=== PATIENT | male | born 1955 | race Hispanic/Latino ===

== ENCOUNTER 2016-09-02 00:32 | Inpatient (IN) | payer MEDICARE, OTHER ==
[2016-09-02] MEDS ORDERED: Sodium Chloride 0.9% 1,000 ML IV ONE (04:08)
--- NOTE | 2016-09-02 04:20 | C.PDOC ---
History Of Present Illness <Kassy Quiroz - Last Filed: 09/05/16 10:23> <Abdirizak Jimenez - Last Filed: 10/14/16 06:43> 61 y/o male presents to the ED with complains of syncopal episode. Pt states prior to episode he felt light headed and dizzy. Pt denies any injury. Pt also reports difficulty urinating due to prostate issue. PMHx diabetes, not on medication. Pt drank alcohol today. (Abdirizak Jimenez) <Kassy Quiroz - Last Filed: 09/05/16 10:23> History Per: Patient History/Exam Limitations: no limitations Onset/Duration Of Symptoms: Mins Current Symptoms Are (Timing): Gone Severity: Mild Pain Scale Rating Of: 1 Associated Symptoms: denies: Fever, Chills, Nausea, Vomiting Alleviating Factors: None Recent travel outside of the [place]: No Additional History Per: Patient <Abdirizak Jimenez - Last Filed: 10/14/16 06:43> Time Seen by Provider: 09/02/16 04:00 Chief Complaint (Nursing): Male Genitourinary Past Medical History Reviewed: Historical Data, Nursing Documentation, Vital Signs - Medical History PMH: HTN Surgical History: No Surg Hx Family History: States: Unknown Family Hx - Social History Hx Alcohol Use: Yes Hx Substance Use: No - Immunization History Hx Tetanus Toxoid Vaccination: No Hx Influenza Vaccination: No Hx Pneumococcal Vaccination: No <Abdirizak Jimenez - Last Filed: 10/14/16 06:43> Vital Signs: Last Vital Signs Temp 97.8 F 09/10/16 07:00 Pulse 74 09/10/16 08:00 Resp 20 09/10/16 07:00 BP 127/75 09/10/16 07:00 Pulse Ox 100 10/11/16 14:32 - [facility] Procedures PACKING OF NASAL REGION USING PACKING MATERIAL (11/03/15) Review Of Systems Except As Marked, All Systems Reviewed And Found Negative. Constitutional: Negative for: Fever, Chills, Sweats Cardiovascular: Negative for: Chest Pain, Palpitations, Orthopnea, Paroxysmal Noc. Dyspnea Respiratory: Negative for: Cough, Shortness of Breath, Hemoptysis Gastrointestinal: Negative for: Nausea, Vomiting, Abdominal Pain, Diarrhea Genitourinary: Positive for: Other (difficulty urinating) Musculoskeletal: Negative for: Neck Pain, Shoulder Pain, Arm Pain Neurological: Positive for: Other (syncopal episode). Negative for: Weakness, Numbness, Incoordination, Change in Speech <Abdirizak Jimenez - Last Filed: 10/14/16 06:43> Physical Exam - Physical Exam Appears: Non-toxic, No Acute Distress, Other (alcohol on breath) Skin: Warm, Dry, No Rash Head: Atraumatic, Normacephalic Eye(s): bilateral: PERRL, EOMI Nose: Normal Neck: Normal ROM, Supple Chest: Symmetrical Cardiovascular: Rhythm Regular, No Murmur Respiratory: Normal Breath Sounds, No Rales, No Rhonchi, No Wheezing Gastrointestinal/Abdominal: Soft Extremity: Normal ROM Extremity: Bilateral: Atraumatic Neurological/Psych: Oriented x3, Normal Speech, Normal Cognition, Normal Motor, Normal Sensation <Abdirizak Jimenez - Last Filed: 10/14/16 06:43> ED Course And Treatment - Laboratory Results Result Diagrams: 09/02/16 04:30 09/02/16 04:30 <Kassy Quiroz - Last Filed: 09/05/16 10:23> - Laboratory Results Result Diagrams: 09/08/16 07:26 09/10/16 07:37 ECG: Interpreted By Me, Viewed By Ma ECG Rhythm: Sinus Rhythm ECG Interpretation: No Acute Changes Interpretation Of ECG: j pt. elevation-early repolarization, Rate From EC O2 Sat by Pulse Oximetry: 100 (on room air) Pulse Ox Interpretation: Normal - CT Scan/US CT head Other Rad Studies (CT/US): Read By Radiologist, Radiology Report Reviewed CT/US Interpretation: EXAM: CT Head Without Intravenous Contrast. CLINICAL HISTORY: 61 years old, male; Pain; Headache; Patient HX: 12-28-15. TECHNIQUE: Axial computed tomography images of the head/brain without intravenous contrast. This CT exam. was performed using one or more of the following dose reduction techniques: automated exposure. control, adjustment of the mA and/or kV according to patient size, and/or use of iterative. reconstruction technique. COMPARISON: CT - HEAD W/O CONTRAST 12/28/2015 11:52:43 AM. FINDINGS : Brain: Moderate atrophy. No intracranial hemorrhage. No mass. No definite edema. Ventricles: No hydrocephalus. Bones/joints: No acute fracture. Soft tissues: Probable sebaceous cysts within scalp. Vasculature: Atherosclerotic disease of intracranial arteries. Sinuses: No acute sinusitis. Mastoid air cells: No mastoid effusion. Orbits: Unremarkable as visualized. IMPRESSION: 1. No acute intracranial abnormality. 2. Non-acute findings are described above. Thank you for allowing us to participate in the care of your patient. Dictated and Authenticated by: Patrick Guzman MD. 09/02/2016 5:58 AM Eastern Time ([place] & [place]) <Abdirizak Jimenez - Last Filed: 10/14/16 06:43> NIHSS Stroke Scale - Date/Time Evaluation Performed Date Performed: 09/02/16 Time Performed: 04:00 When Was NIHSS Performed: Baseline - How Severe is the Stoke Level of Consciousness: 0=Alert LOC to Questions: 0=Both comments correct LOC to commands: 0=Obeys both correctly Best Gaze: 0=Normal Visual: 0=No visual loss Facial: 0=Normal Motor Arm - Left: 0=No drift Motor Arm - Right: 0=No drift Motor Leg - Left: 0=No drift Motor Leg - Right: 0=No drift Limb Ataxia: 0=Absent Sensory: 0=Normal Best Language: 0=No aphasia Dysarthia: 0=Normal articulation Extinction & Inattention (Neglect): 0=Normal, no object Score: 0 Severity Of Stroke: 0= No Stroke <Abdirizak Jimenez - Last Filed: 10/14/16 06:43> Progress - Data Reviewed Data Reviewed: Lab, Diagnostic imaging, EKG, Old records - Continuity of Care Discussed patient case with:: Patient, Covering for PMD <Kassy Quiroz - Last Filed: 09/05/16 10:23> - Time Time: 06:00 - Interventions Interventions:: Observation - Data Reviewed Data Reviewed: Lab, Diagnostic imaging, EKG - Patient Status Patient status: Stable - Continuity of Care Discussed patient case with:: Patient - Transfer of Care Patient signed out to Dr:: Dr. Carolina Quiroz <Abdirizak Jimenez - Last Filed: 10/14/16 06:43> - Re-Evaluation Re-evaluation Note: 09/02/16 07:43 AO3 NO ACUTE INTOX, CLEAR SPEECH AND THOUGHT. PS HAD PRIOR SYNCOPAL EPISODES LAST YEAR, WAS TOLD "DUE TO LOW SODIUM". CURRENTLY ASYMPT. PS DOES NOT DRINK DAILY BUT "I KNOW I DIDNT PASS OUT BECAUSE OF THE 4 BEERS". OLD RECS REVIEWED: NO PRIOR CARDIAC STUDIES EXCEPT EKG D/W DR CABALLERO C/F PMD: WILL ADMIT (RichieKassy) Medical Decision Making <Kassy Quiroz - Last Filed: 09/05/16 10:23> <Abdirizak Jimenez - Last Filed: 10/14/16 06:43> Medical Decision Making: Plan: CT head, EKG, labs, UA, IV fluids (Abdirizak Jimenez) Disposition Counseled Patient/Family Regarding: Studies Performed, Diagnosis - Disposition Disposition Time: 07:46 - POA Present On Arrival: None <Kassy Quiroz - Last Filed: 09/05/16 10:23> Discussed With .: Debby Caballero Doctor Will See Patient In The: Hospital Counseled Patient/Family Regarding: Studies Performed, Diagnosis - Disposition Disposition Time: 06:46 - POA Present On Arrival: None <Abdirizak Jimenez - Last Filed: 10/14/16 06:43> - Disposition Disposition: HOSPITALIZED Condition: STABLE - Clinical Impression Clinical Impression: Syncope, Alcohol abuse <Kassy Quiroz - Last Filed: 09/05/16 10:23> - Scribe Statement The provider has reviewed the documentation as recorded by the Scribe <Abdirizak Jimenez - Last Filed: 10/14/16 06:43> - Scribe Statement George Bustamante (Abdirizak Jimenez) Provider Attestation: All medical record entries made by the Scribe were at my direction and personally dictated by me. I have reviewed the chart and agree that the record accurately reflects my personal performance of the history, physical exam, medical decision making, and the department course for this patient. I have also personally directed, reviewed, and agree with the discharge instructions and disposition. (Abdirizak Jimenez) Decision To Admit - Pt Status Changed To: Hospital Disposition Of: Observation - . Bed Request Type: Telemetry Admitting Physician: Debby Caballero <Kassy Quiroz - Last Filed: 09/05/16 10:23> - Pt Status Changed To: Hospital Disposition Of: Observation - InPatient: Physician Admission Certification: I certify that this patient requires 2 or more midnights of care for the following reason:: Patient is to be admitted for obseration for syncopal epsiode - . Bed Request Type: Telemetry <Abdirizak Jimenez - Last Filed: 10/14/16 06:43> - . Patient Diagnosis: Syncope, Alcohol abuse Physician Patient Turnover Patient Signed Over To: Kassy Quiroz Handoff Comments: Hx of syncope, awaiting head CT and disposition. <Abdirizak Jimenez - Last Filed: 10/14/16 06:43>
[2016-09-02 04:38] LABS: BASO # 0.1 K/uL (0.0-0.2); BASO % 2.1 % (0.0-2.0); EOS # 0.2 K/uL (0.0-0.7); HEMATOCRIT 37.8 % (35.0-51.0); LYMPH # 2.4 K/uL (1.0-4.3); MEAN CELL VOLUME 90.4 fL (80.0-94.0); MEAN CORPUSCULAR HEMOGLOBIN 30.7 pg (27.0-31.0); MEAN CORPUSCULAR HGB CONC 33.9 g/dL (33.0-37.0); MEAN PLATELET VOLUME 7.9 fL (7.2-11.7); MONO # 0.6 K/uL (0.0-0.8); MONO % 10.6 % (0.0-10.0); NRBC % 0.1 % (0.0-2.0); RED CELL DISTRIBUTION WIDTH 13.8 % (11.5-14.5); WHITE BLOOD COUNT 5.8 K/uL (4.8-10.8)
[2016-09-02 04:49] LABS: CHLORIDE 98 mmol/L (98-107); SODIUM 132 mmol/L (132-148)
[2016-09-02 04:50] LABS: POTASSIUM 4.8 mmol/L (3.6-5.2)
[2016-09-02 04:52] LABS: ALB/GLOB RATIO 1.1 (1.0-2.1); ALKALINE PHOSPHATASE 57 U/L (38-126); ALT/SGPT 51 U/L (21-72); AST/SGOT 88 U/L (17-59); BILIRUBIN,TOTAL 0.8 mg/dL (0.2-1.3); BLOOD UREA NITROGEN 8 mg/dL (9-20); CALCIUM 8.6 mg/dl (8.6-10.4); CARBON DIOXIDE 21 mmol/L (22-30); GFR AFRICAN-AMERICAN > 60; GLUCOSE,RANDOM 105 mg/dL (75-110); TOTAL PROTEIN 7.7 g/dL (6.3-8.3)
[2016-09-02 04:53] LABS: ALCOHOL SERUM 183 mg/dl (0-10)
--- NOTE | 2016-09-02 05:58 | CT ---
EXAM: CT Head Without Intravenous Contrast. CLINICAL HISTORY: 61 years old, male; Pain; Headache; Patient HX: 7-24-16 TECHNIQUE: Axial computed tomography images of the head/brain without intravenous contrast. This CT exam was performed using one or more of the following dose reduction techniques: automated exposure control, adjustment of the mA and/or kV according to patient size, and/or use of iterative reconstruction technique. COMPARISON: CT - HEAD W/O CONTRAST 12/28/2015 11:52:43 AM FINDINGS: Brain: Moderate atrophy. No intracranial hemorrhage. No mass. No definite edema. Ventricles: No hydrocephalus. Bones/joints: No acute fracture. Soft tissues: Probable sebaceous cysts within scalp. Vasculature: Atherosclerotic disease of intracranial arteries. Sinuses: No acute sinusitis. Mastoid air cells: No mastoid effusion. Orbits: Unremarkable as visualized. IMPRESSION: 1.No acute intracranial abnormality. 2.Non-acute findings are described above.
[2016-09-02] MEDS ORDERED: Sodium Chloride 0.9% 1,000 ML ONE (08:12)
[2016-09-02 09:43] LABS: RBC URINE < 1 /hpf (0-3); URINE BILIRUBIN NEGATIVE (NEGATIVE); URINE BLOOD NEGATIVE (NEGATIVE); URINE COLOR Straw (YELLOW); URINE GLUCOSE (UA) NORMAL (Normal); URINE KETONE NEGATIVE (NEGATIVE); URINE LEUKOCYTE ESTERASE NEG Leu/uL (Negative); URINE PROTEIN NEGATIVE (NEGATIVE); URINE UROBILINOGEN NORMAL mg/dL (0.2-1.0); WBC URINE < 1 /hpf (0-5)
--- NOTE | 2016-09-02 19:37 | CP.PCM.HP ---
History of Present Illness - History of Present Illness History of Present Illness: recurent syncope Present on Admission - Present on Admission Any Indicators Present on Admission: No Review of Systems - Review of Systems Systems not reviewed;Unavailable: Acuity of Condition - Constitutional Constitutional: Frequent Falls - EENT Eyes: As Per HPI Ears: As Per HPI Nose/Mouth/Throat: As Per HPI - Cardiovascular Cardiovascular: Syncope - Respiratory Additional comments: hicup for many years - Gastrointestinal Gastrointestinal: Diarrhea - Genitourinary Genitourinary: Voiding Freq/Small Amts - Reproductive: Male Reproductive:Male: As Per HPI Past Patient History - Tetanus Immunizations Tetanus Immunization: Unknown - Past Medical History & Family History Past Medical History?: Yes - Past Social History Smoking Status: Never Smoked - CARDIAC Hx Hypertension: Yes - PULMONARY Hx Respiratory Disorders: No - NEUROLOGICAL Hx Neurological Disorder: No - HEENT Hx Epistaxis: Yes - RENAL Hx Chronic Kidney Disease: No - ENDOCRINE/METABOLIC Hx Diabetes Mellitus Type 2: No - HEMATOLOGICAL/ONCOLOGICAL Hx Blood Disorders: No - INTEGUMENTARY Hx Dermatological Problems: No - MUSCULOSKELETAL/RHEUMATOLOGICAL Hx Falls: No - GASTROINTESTINAL Hx Gastrointestinal Disorders: Yes - GENITOURINARY/GYNECOLOGICAL Hx Genitourinary Disorders: No Hx Prostate Problems: Yes - PSYCHIATRIC Hx Substance Use: No - SURGICAL HISTORY Hx Surgeries: No - ANESTHESIA Hx Anesthesia: No Meds Allergies/Adverse Reactions: Allergies Allergy/AdvReac Type Severity Reaction Status Date / Time No Known Allergies Allergy Verified 09/02/16 01:33 Physical Exam - Constitutional Appears: Non-toxic - Head Exam Head Exam: NORMAL INSPECTION - Eye Exam Eye Exam: Normal appearance Pupil Exam: NORMAL ACCOMODATION - ENT Exam ENT Exam: Mucous Membranes Moist - Neck Exam Neck exam: Positive for: Full Rom - Respiratory Exam Respiratory Exam: Clear to Auscultation Bilateral - Cardiovascular Exam Cardiovascular Exam: REGULAR RHYTHM - Skin Skin Exam: Normal Color Results - Vital Signs Recent Vital Signs: Last Vital Signs Temp 99.2 F 09/02/16 16:00 Pulse 80 09/02/16 16:00 Resp 20 09/02/16 16:00 BP 130/86 09/02/16 16:00 Pulse Ox 97 09/02/16 16:00 - Labs Result Diagrams: 09/02/16 04:30 09/02/16 04:30 Labs: Laboratory Results - last 24 hr 09/02/16 09:36 Urine Color Straw Urine Clarity Clear Urine pH 5.0 Ur Specific [place] 1.006 Urine Protein Negative Urine Glucose (UA) Normal Urine Ketones Negative Urine Blood Negative Urine Nitrate Negative Urine Bilirubin Negative Urine Urobilinogen Normal Ur Leukocyte Esterase Neg Urine WBC (Auto) < 1 Urine RBC (Auto) < 1 Ur Squamous Epith Cells < 1 Urine Opiates Screen Negative Urine Methadone Screen Negative Ur Barbiturates Screen Negative Ur Phencyclidine Scrn Negative Ur Amphetamines Screen Negative U Benzodiazepines Scrn Negative U Oth Cocaine Metabols Negative U Cannabinoids Screen Negative Assessment & Plan - Assessment and Plan (Free Text) Assessment: recurent syncope jamarigh Plan: as per orders - Date & Time Date: 09/02/16 Time: 19:38
[2016-09-03] MEDS: Folic Acid 1 MG, Thiamine 100 MG, Multivitamin (MVI) 10 ML in Dextrose 5% In Water 1,00... IV SCH (10:10)
--- NOTE | 2016-09-03 10:57 | CP.PCM.PN ---
Subjective - Date & Time of Evaluation Date of Evaluation: 08/27/16 Time of Evaluation: 10:55 - Subjective Subjective: UNSTEADY GAIT Objective - Vital Signs/Intake and Output Vital Signs (last 24 hours): Temp Pulse Resp BP Pulse Ox 98.3 F 74 18 156/78 H 100 09/03/16 08:00 09/03/16 08:00 09/03/16 08:00 09/03/16 08:00 09/03/16 08:00 Intake and Output: 09/03/16 09/03/16 06:59 18:59 Intake Total 240 Balance 240 - Medications Medications: Current Medications Chlordiazepoxide (Librium) 25 mg PO Q8 PRN PRN Reason: Anxiety Heparin Sodium (Porcine) (Heparin) 5,000 units SC Q12 [facility] Last Admin: 09/03/16 10:10 Dose: 5,000 units Folic Acid 1 mg/ Thiamine HCl 100 mg/ Multivitamins/Vitamin C 10 ml/ Dextrose 1 ,011.2 mls @ 100 mls/hr IV DAILY [facility] Last Admin: 09/03/16 10:10 Dose: 100 mls/hr - Constitutional Appears: Non-toxic - Head Exam Head Exam: NORMAL INSPECTION - Eye Exam Eye Exam: Normal appearance Pupil Exam: NORMAL ACCOMODATION - ENT Exam ENT Exam: Mucous Membranes Moist - Neck Exam Neck Exam: Normal Inspection - Cardiovascular Exam Cardiovascular Exam: REGULAR RHYTHM - GI/Abdominal Exam GI & Abdominal Exam: Normal Bowel Sounds - Rectal Exam Rectal Exam: NORMAL INSPECTION - Extremities Exam Extremities Exam: Normal Inspection - Back Exam Back Exam: NORMAL INSPECTION - Neurological Exam Neurological Exam: Abnormal Gait, Oriented x3 - Psychiatric Exam Psychiatric exam: Normal Affect - Skin Skin Exam: Normal Color Assessment and Plan - Assessment and Plan (Free Text) Assessment: RECURENT SYNCOPE UNSTEADY GAITE Plan: PER ORDERS
--- NOTE | 2016-09-03 14:24 | MRI ---
PROCEDURE: MRI BRAIN WITHOUT CONTRAST HISTORY: Recurrent syncope COMPARISON: Noncontrast head CT from 09/02/2016 TECHNIQUE: Multiplanar, multisequence MR images of the brain were obtained without intravenous contrast enhancement. FINDINGS: HEMORRHAGE: None DWI: No evidence of an acute or early subacute infarction. BRAIN PARENCHYMA: There is focal T2/FLAIR hyperintense signal in the right paramedian posterior frontal cortex. There is no mass, mass effect or abnormal extra-axial fluid collection. There is a partially empty sella, otherwise the midline sagittal structures are normal. VENTRICLES: There is moderate age-related global parenchymal volume loss and proportionate enlargement of the ventricles and cortical sulci. CRANIUM: There is normal bone marrow signal pattern. ORBITS: Grossly unremarkable. PARANASAL SINUSES/MASTOIDS: Clear VASCULAR SYSTEM: There are normal signal voids in the larger intracranial arteries. OTHER FINDINGS: None. IMPRESSION: 1. Focal signal abnormality in the right paramedian posterior frontal cortex, nonspecific and not completely characterized on this noncontrast examination. The differential considerations include old infarction and gliosis, focal encephalitis and neoplasm or less likely differential considerations. A dedicated MRI of the brain with intravenous contrast would be helpful for further evaluation. 2. Moderate age-related global parenchymal volume loss.
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
--- NOTE | 2016-09-04 06:26 | CARD ---
APPROVED REPORT EKG Measurement Heart [id number] <Conclusion> Normal sinus rhythm Early repolarization Normal ECG
[2016-09-04] MEDS ORDERED: Gadodiamide 287 MG/ML VIAL (15ML) IV ONE (08:59)
[2016-09-04 09:07] LABS: THYROID STIMULATING HORMONE 2.46 mIU/L (0.46-4.68)
[2016-09-04] MEDS: Folic Acid 1 MG, Thiamine 100 MG, Multivitamin (MVI) 10 ML in Dextrose 5% In Water 1,00... IV SCH (10:00)
--- NOTE | 2016-09-04 10:32 | MRI ---
PROCEDURE: MRI BRAIN WITH AND WITHOUT CONTRAST HISTORY: sycope COMPARISON: Comparison is made to the previous noncontrast study dated 09/03/2016 TECHNIQUE: Multiplanar, multisequence MR images of the brain were obtained with and without intravenous contrast enhancement. FINDINGS: HEMORRHAGE: None DWI: No evidence of an acute or early subacute infarction. BRAIN PARENCHYMA: Re- demonstration of small focal hyperintense T2 and FLAIR signal at the right paramedial posterior frontal cortex. Mild atrophy is again noted. ENHANCEMENT: No significant interval change at the focal abnormal signal in the right posterior frontal paramedial region. VENTRICLES: Unremarkable. No hydrocephalus. CRANIUM: Unremarkable. ORBITS: Grossly unremarkable. PARANASAL SINUSES/MASTOIDS: Clear VASCULAR SYSTEM: Skull base flow voids intact. OTHER FINDINGS: Incidentally noted is a empty sella and mildly enlarged sella turcica.. IMPRESSION: No significant interval change. Re- demonstration of focal abnormal hyperintense T2 and FLAIR signal at the right paramedian posterior frontal cortex which demonstrates no significant enhancement in the postcontrast images. The differential diagnosis is again includes but not limited to sequela of prior infection or inflammatory process and low grade neoplasm. No evidence of acute infarct or other acute pathology in the brain otherwise. Mild atrophy. Follow-up reassessment after 3 months is recommended.
--- NOTE | 2016-09-04 14:28 | CARD ---
APPROVED REPORT EXAM: Two-dimensional and M-mode echocardiogram with Doppler and color Doppler. Other Information Quality : GoodRhythm : NSR INDICATION Dizziness and Vertigo Syncope ALCOHOL ABU M-Mode DIMENSIONS RVDd1.58 (2.1-3.2cm)Left Atrium (MM)3.19 (2.5-4.0cm) IVSd0.73 (0.7-1.1cm)Aortic Root3.16 (2.2-3.7cm) LVDd5.01 (4.0-5.6cm)Aortic Cusp Exc.2.13 (1.5-2.0cm) PWd0.91 (0.7-1.1cm)FS (%) 44 % LVDs2.82 (2.0-3.8cm)LVEF (%)75 (>50%) Mitral Valve MV E Ubfpfxlg28.9cm/sMV A Fbkuxhrp76.6cm/sE/A ratio0.9 TDI E/Lateral E'0.0E/Medial E'0.0 LEFT VENTRICLE The left ventricle is normal size. There is normal left ventricular wall thickness. Left ventricle systolic function is normal. The Ejection Fraction is >70%. There is normal LV segmental wall motion. Tissue Doppler imaging reveals abnormal left ventricular diastolic dysfunction. No left ventricle thrombus noted on this study. RIGHT VENTRICLE The right ventricle is normal size. There is normal right ventricular wall thickness. The right ventricular systolic function is normal. ATRIA The left atrium size is normal. The right atrium size is normal. The interatrial septum is intact with no evidence for an atrial septal defect. AORTIC VALVE The aortic valve is normal in structure. No aortic regurgitation is present. There is no aortic valvular stenosis. There is no aortic valvular vegetation. MITRAL VALVE The mitral valve is normal in structure. There is no evidence of mitral valve prolapse. There is no mitral valve stenosis. There is no mitral valve regurgitation noted. TRICUSPID VALVE The tricuspid valve is normal in structure. There is no tricuspid valve regurgitation noted. There is no tricuspid valve prolapse or vegetation. There is no tricuspid valve stenosis. PULMONIC VALVE The pulmonic valve is not well visualized. There is no pulmonic valvular regurgitation. GREAT VESSELS The aortic root is normal in size. PERICARDIAL EFFUSION There is no significant pericardial effusion. <Conclusion> Left ventricle systolic function is normal. The Ejection Fraction is >70%. Diastolic dysfunction. No aortic regurgitation is present. There is no mitral valve regurgitation noted. There is no tricuspid valve regurgitation noted. There is no pulmonic valvular regurgitation.
--- NOTE | 2016-09-04 16:03 | CP.PCM.CON ---
History of Present Illness - History of Present Illness History of Present Illness: CC: Syncope HPI: 61 y/o male presents to the ED with complains of presyncopal episode. As per chart it appears to be in the context of alchohol intoxication. Patient is reporting several months of these symptoms. Worse with change in position. He is denying abuse of alcohol. He is reporting presyncope which appears to be more like vertigo. He is reporing increased fatigue with exertion. improves with rest. Denies chest pain. Review of Systems - Review of Systems All systems: reviewed and no additional remarkable complaints except Past Patient History - Tetanus Immunizations Tetanus Immunization: Unknown - Past Medical History & Family History Past Medical History?: Yes - Past Social History Smoking Status: Never Smoked - CARDIAC Hx Cardiac Disorders: No Hx Hypertension: Yes - PULMONARY Hx Respiratory Disorders: No - NEUROLOGICAL Hx Neurological Disorder: No - HEENT Hx Epistaxis: Yes - RENAL Hx Chronic Kidney Disease: No - ENDOCRINE/METABOLIC Hx Diabetes Mellitus Type 2: No - HEMATOLOGICAL/ONCOLOGICAL Hx Blood Disorders: No - INTEGUMENTARY Hx Dermatological Problems: No - MUSCULOSKELETAL/RHEUMATOLOGICAL Hx Falls: No - GASTROINTESTINAL Hx Gastrointestinal Disorders: Yes - GENITOURINARY/GYNECOLOGICAL Hx Genitourinary Disorders: No Hx Prostate Problems: Yes - PSYCHIATRIC Hx Substance Use: No - SURGICAL HISTORY Hx Surgeries: No - ANESTHESIA Hx Anesthesia: No Meds Allergies/Adverse Reactions: Allergies Allergy/AdvReac Type Severity Reaction Status Date / Time No Known Allergies Allergy Verified 09/02/16 01:33 - Medications Medications: Current Medications Chlordiazepoxide (Librium) 25 mg PO Q8 PRN PRN Reason: Anxiety Heparin Sodium (Porcine) (Heparin) 5,000 units SC Q12 COUNTS INCLUDE 234 BEDS AT THE [facility] Last Admin: 09/04/16 11:00 Dose: 5,000 units Folic Acid 1 mg/ Thiamine HCl 100 mg/ Multivitamins/Vitamin C 10 ml/ Dextrose 1 ,011.2 mls @ 100 mls/hr IV DAILY COUNTS INCLUDE 234 BEDS AT THE [facility] Last Admin: 09/04/16 10:00 Dose: 100 mls/hr Physical Exam - Constitutional Appears: Well, Non-toxic - Head Exam Head Exam: ATRAUMATIC, NORMAL INSPECTION - Eye Exam Eye Exam: PERRL. absent: Scleral icterus - ENT Exam ENT Exam: Mucous Membranes Moist, Normal Exam - Neck Exam Neck exam: Positive for: Full Rom. Negative for: Thyromegaly - Respiratory Exam Respiratory Exam: Clear to Auscultation Bilateral, NORMAL BREATHING PATTERN - Cardiovascular Exam Cardiovascular Exam: REGULAR RHYTHM, RRR, +S1, +S2. absent: JVD - GI/Abdominal Exam GI & Abdominal Exam: Normal Bowel Sounds. absent: Organomegaly - Neurological Exam Neurological exam: CN II-XII Intact, Oriented x3 - Psychiatric Exam Psychiatric exam: Anxious (odd affect) Results - Vital Signs Recent Vital Signs: Last Vital Signs Temp 98.0 F 09/04/16 08:14 Pulse 79 09/04/16 08:14 Resp 20 09/04/16 08:14 BP 140/83 09/04/16 08:14 Pulse Ox 98 09/04/16 08:14 - Labs Result Diagrams: 09/02/16 04:30 09/02/16 04:30 Labs: Laboratory Results - last 24 hr 09/03/16 09/04/16 19:33 08:07 Triglycerides 68 Cholesterol 173 LDL Cholesterol Direct 44 HDL Cholesterol 108 H Prostate Specific Ag 1.77 25-OH Vitamin D Total < 12.8 L TSH 3rd Generation 2.46 Rheum Arthritis Panel Negative HIV 1&2 Antibody Screen Negative Assessment & Plan - Assessment and Plan (Free Text) Assessment: 61 year old man with possible now with presyncope - IVF, TEDS stockings, increase salt in diet Vertigo - likely needs nasal steroids, meclizine and physical therpy ETOH abuse - IVF; monitor for withdrawl; benzo taper 2D echo images were viewed by me - No evidence of cardiomyopathy. He should follow up in my office in 2 weeks for re evaluation and possible CAD work up.
--- NOTE | 2016-09-04 17:20 | CP.PCM.PN ---
Subjective - Date & Time of Evaluation Date of Evaluation: 09/04/16 Time of Evaluation: 17:18 - Subjective Subjective: feels beter Objective - Vital Signs/Intake and Output Vital Signs (last 24 hours): Temp Pulse Resp BP Pulse Ox 97.9 F 84 20 141/80 100 09/04/16 16:27 09/04/16 16:27 09/04/16 16:27 09/04/16 16:27 09/04/16 16:27 Intake and Output: 09/04/16 09/04/16 06:59 18:59 Intake Total 940 Balance 940 - Medications Medications: Current Medications Calcium/Vitamin D (Oscal-D 250 Mg-125 Units Tab) 1 tab PO DAILY [facility] Chlordiazepoxide (Librium) 25 mg PO Q8 PRN PRN Reason: Anxiety Heparin Sodium (Porcine) (Heparin) 5,000 units SC Q12 [facility] Last Admin: 09/04/16 11:00 Dose: 5,000 units Folic Acid 1 mg/ Thiamine HCl 100 mg/ Multivitamins/Vitamin C 10 ml/ Dextrose 1 ,011.2 mls @ 100 mls/hr IV DAILY [facility] Last Admin: 09/04/16 10:00 Dose: 100 mls/hr - Constitutional Appears: Non-toxic - Head Exam Head Exam: NORMAL INSPECTION - Eye Exam Pupil Exam: NORMAL ACCOMODATION - ENT Exam ENT Exam: Mucous Membranes Moist - Neck Exam Neck Exam: Full ROM - Respiratory Exam Respiratory Exam: NORMAL BREATHING PATTERN - Cardiovascular Exam Cardiovascular Exam: REGULAR RHYTHM - GI/Abdominal Exam GI & Abdominal Exam: Hyperactive Bowel Sounds, Normal Bowel Sounds - Rectal Exam Rectal Exam: NORMAL INSPECTION - Extremities Exam Extremities Exam: Full ROM - Back Exam Back Exam: NORMAL INSPECTION - Psychiatric Exam Psychiatric exam: Normal Affect - Skin Skin Exam: Normal Color Assessment and Plan - Assessment and Plan (Free Text) Assessment: recurent syncpe brain atrophy
--- NOTE | 2016-09-04 18:57 | CP.PCM.CON ---
History of Present Illness - History of Present Illness History of Present Illness: No new Syncopal spells, no seizures, Echo is showing normal findings except for a mild diastolic dysfunction. Very low Vitamin D, and Vitamin D replacement with Oscal were started, Normal PSA. Lab work Are seen. Repeat MRI Brain with contrast is performed, MRA Brain is not performed. 1. Focal signal abnormality in the right paramedian posterior frontal cortex, nonspecific and not completely characterized on this noncontrast examination. The differential considerations include old infarction and gliosis, focal encephalitis and neoplasm or less likely differential considerations. A dedicated MRI of the brain with intravenous contrast would be helpful for further evaluation. 2. Moderate age-related global parenchymal volume loss. Negative Urine Toxicology screen. No change in his condition clinically. Past Patient History - Tetanus Immunizations Tetanus Immunization: Unknown - Past Medical History & Family History Past Medical History?: Yes - Past Social History Smoking Status: Never Smoked - CARDIAC Hx Cardiac Disorders: No Hx Hypertension: Yes - PULMONARY Hx Respiratory Disorders: No - NEUROLOGICAL Hx Neurological Disorder: No - HEENT Hx Epistaxis: Yes - RENAL Hx Chronic Kidney Disease: No - ENDOCRINE/METABOLIC Hx Diabetes Mellitus Type 2: No - HEMATOLOGICAL/ONCOLOGICAL Hx Blood Disorders: No - INTEGUMENTARY Hx Dermatological Problems: No - MUSCULOSKELETAL/RHEUMATOLOGICAL Hx Falls: No - GASTROINTESTINAL Hx Gastrointestinal Disorders: Yes - GENITOURINARY/GYNECOLOGICAL Hx Genitourinary Disorders: No Hx Prostate Problems: Yes - PSYCHIATRIC Hx Substance Use: No - SURGICAL HISTORY Hx Surgeries: No - ANESTHESIA Hx Anesthesia: No Meds Allergies/Adverse Reactions: Allergies Allergy/AdvReac Type Severity Reaction Status Date / Time No Known Allergies Allergy Verified 09/02/16 01:33 - Medications Medications: Current Medications Calcium Carbonate (Oscal) 500 mg PO BID [facility] Calcium/Vitamin D (Oscal-D 250 Mg-125 Units Tab) 1 tab PO DAILY [facility] Chlordiazepoxide (Librium) 25 mg PO Q8 PRN PRN Reason: Anxiety Ergocalciferol (Drisdol 50,000 Intl Units Cap) 1 cap PO Q7D [facility] Heparin Sodium (Porcine) (Heparin) 5,000 units SC Q12 [facility] Last Admin: 09/04/16 11:00 Dose: 5,000 units Folic Acid 1 mg/ Thiamine HCl 100 mg/ Multivitamins/Vitamin C 10 ml/ Dextrose 1 ,011.2 mls @ 100 mls/hr IV DAILY [facility] Last Admin: 09/04/16 10:00 Dose: 100 mls/hr Results - Vital Signs Recent Vital Signs: Last Vital Signs Temp 97.9 F 09/04/16 16:27 Pulse 84 09/04/16 16:27 Resp 20 09/04/16 16:27 BP 141/80 09/04/16 16:27 Pulse Ox 100 09/04/16 16:27 - Labs Result Diagrams: 09/02/16 04:30 09/02/16 04:30 Labs: Laboratory Results - last 24 hr 09/03/16 09/04/16 19:33 08:07 Triglycerides 68 Cholesterol 173 LDL Cholesterol Direct 44 HDL Cholesterol 108 H Prostate Specific Ag 1.77 25-OH Vitamin D Total < 12.8 L TSH 3rd Generation 2.46 Rheum Arthritis Panel Negative HIV 1&2 Antibody Screen Negative Assessment & Plan (1) Alcohol abuse Status: Acute (2) Syncope Status: Acute (3) Dizziness Status: Acute (4) Alcohol intoxication Status: Acute (5) Depression Status: Acute (6) History of posttraumatic stress disorder (PTSD) Status: Acute (7) CVA (cerebral vascular accident) Status: Acute (8) Seizures Status: Acute (9) Alcohol related seizure Status: Acute
[2016-09-04] MEDS ORDERED: Ergocalciferol 50,000 Intl Units Cap PO SCH (20:00)
[2016-09-05] MEDS ORDERED: Calcium-Vit D 250 mg-125 Units Tab UD PO SCH (10:00)
[2016-09-05] MEDS: Folic Acid 1 MG, Thiamine 100 MG, Multivitamin (MVI) 10 ML in Dextrose 5% In Water 1,00... IV SCH (10:33)
--- NOTE | 2016-09-05 11:34 | CP.PCM.PN ---
Subjective - Date & Time of Evaluation Date of Evaluation: 09/05/16 Time of Evaluation: 11:32 - Subjective Subjective: c/kris headeack bpup today Objective - Vital Signs/Intake and Output Vital Signs (last 24 hours): Temp Pulse Resp BP Pulse Ox 97.3 F L 70 20 152/76 H 98 09/05/16 08:17 09/05/16 08:17 09/05/16 08:17 09/05/16 08:17 09/05/16 08:17 - Medications Medications: Current Medications Calcium Carbonate (Oscal) 500 mg PO BID [facility] Last Admin: 09/05/16 10:33 Dose: 500 mg Calcium/Vitamin D (Oscal-D 250 Mg-125 Units Tab) 1 tab PO DAILY [facility] Chlordiazepoxide (Librium) 25 mg PO Q8 PRN PRN Reason: Anxiety Ergocalciferol (Drisdol 50,000 Intl Units Cap) 1 cap PO Q7D [facility] Last Admin: 09/04/16 22:13 Dose: 1 cap Heparin Sodium (Porcine) (Heparin) 5,000 units SC Q12 [facility] Last Admin: 09/05/16 10:33 Dose: 5,000 units Folic Acid 1 mg/ Thiamine HCl 100 mg/ Multivitamins/Vitamin C 10 ml/ Dextrose 1 ,011.2 mls @ 100 mls/hr IV DAILY [facility] Last Admin: 09/05/16 10:33 Dose: 100 mls/hr - Constitutional Appears: Non-toxic - Head Exam Head Exam: NORMAL INSPECTION - Eye Exam Eye Exam: Normal appearance Pupil Exam: NORMAL ACCOMODATION - ENT Exam ENT Exam: Mucous Membranes Moist - Neck Exam Neck Exam: Full ROM - Respiratory Exam Respiratory Exam: NORMAL BREATHING PATTERN - Cardiovascular Exam Cardiovascular Exam: REGULAR RHYTHM - GI/Abdominal Exam GI & Abdominal Exam: Normal Bowel Sounds - Rectal Exam Rectal Exam: NORMAL INSPECTION - Exam Exam: NORMAL INSPECTION External exam: NORMAL EXTERNAL EXAM Bimanual exam: NORMAL BIMANUAL EXAM - Extremities Exam Extremities Exam: Normal Inspection - Back Exam Back Exam: NORMAL INSPECTION - Neurological Exam Neurological Exam: Oriented x3 - Skin Skin Exam: Normal Color Assessment and Plan - Assessment and Plan (Free Text) Assessment: recurent syncopepossible tia r/o seiserez htn Plan: as per orders
--- NOTE | 2016-09-05 17:33 | VASCLAB ---
PROCEDURE: HISTORY: R/O CVA COMPARISON: None available. TECHNIQUE: Grayscale and duplex Doppler evaluation of the cervical carotid and vertebral arteries were performed. The common carotid, carotid bifurcations and cervical Internal Carotid Artery (ICA) and proximal External Carotid Artery (ECA) were evaluated. The vertebral arteries were evaluated for gross patency and flow direction. Report prepared by NEREIDA Monk FINDINGS: RIGHT CAROTID ARTERIES: 1. Common Carotid Artery: No significant focal plaque formation of the right common carotid artery. Maximum Peak Systolic velocity: 90 cm/sec: End-diastolic velocity 14 cm/sec. 2. Carotid Bifurcation: Minimal homogeneous plaque formation. Maximum Peak Systolic velocity: 43 cm/sec: End-diastolic velocity 8 cm/sec. 3. Internal Carotid Artery: Mild irregular plaque. Plaque description: Homogeneous 3.1. Proximal Segment: Peak systolic velocity 54 cm/sec: End-diastolic velocity 15 cm/sec - % stenosis 0-15% 3.2. Middle Segment: Peak systolic velocity 47 cm/sec: End-diastolic velocity 16 cm/sec - % stenosis 0-15% 3.3. Distal Segment: Peak systolic velocity 54 cm/sec: End-diastolic velocity 13 cm/sec - % stenosis 0-15% 4. External Carotid Artery: Mild homogeneous plaque formation. Peak systolic velocity 81 cm/sec 5. ICA/CCA Ratio: 0.9 LEFT CAROTID ARTERIES: 1. Common Carotid Artery: No significant focal plaque formation of the left common carotid artery. Maximum Peak Systolic velocity: 81 cm/sec: End-diastolic velocity 13 cm/sec. 2. Carotid Bifurcation: Calcific plaque formation. Maximum Peak Systolic velocity: 32 cm/sec: End-diastolic velocity 0 cm/sec. 3. Internal Carotid Artery: Moderate irregular plaque. Plaque description: Calcific 3.1. Proximal Segment: Peak systolic velocity 57 cm/sec: End-diastolic velocity 14 cm/sec - % stenosis 0-15% 3.2. Middle Segment: Peak systolic velocity 66 cm/sec: End-diastolic velocity 18 cm/sec - % stenosis 0-15% 3.3. Distal Segment: Peak systolic velocity 82 cm/sec: End-diastolic velocity 23 cm/sec - % stenosis 0-15% 4. External Carotid Artery: Calcific plaque formation. Peak systolic velocity 75 cm/sec 5. ICA/CCA Ratio: 1.3 VERTEBRAL ARTERIES: 1. Right Vertebral Artery: The right vertebral artery flow direction is antegrade. 2. Left Vertebral Artery: The left vertebral artery flow direction is antegrade. OTHER FINDINGS: 1. Right Brachial Blood pressure: 125 mmHg. 2. Left Brachial Blood pressure: 122 mmHg. 3. Heterogeneous thyroid gland. IMPRESSION: RIGHT: Duplex scan does not suggest hemodynamically significant stenosis of the right extracranial carotid arteries. LEFT: Duplex scan does not suggest hemodynamically significant stenosis of the left extracranial carotid arteries. Heterogeneous thyroid gland. Dedicated ultrasound recommended.
[2016-09-06] MEDS: Folic Acid 1 MG, Thiamine 100 MG, Multivitamin (MVI) 10 ML in Dextrose 5% In Water 1,00... IV SCH (10:41)
[2016-09-06] MEDS: Calcium-Vit D 250 mg-125 Units Tab UD PO SCH (10:48)
--- NOTE | 2016-09-06 17:25 | CP.PCM.PN ---
Subjective - Date & Time of Evaluation Date of Evaluation: 09/06/16 Time of Evaluation: 17:22 - Subjective Subjective: pt doesot c/o but mri repeate r/o malignancy lab hep c will consult id and oncology Objective - Vital Signs/Intake and Output Vital Signs (last 24 hours): Temp Pulse Resp BP Pulse Ox 97.6 F 84 20 145/84 97 09/06/16 16:12 09/06/16 16:12 09/06/16 16:12 09/06/16 16:12 09/06/16 16:12 - Medications Medications: Current Medications Calcium Carbonate (Oscal) 500 mg PO BID [facility] Last Admin: 09/06/16 10:41 Dose: 500 mg Calcium/Vitamin D (Oscal-D 250 Mg-125 Units Tab) 1 tab PO DAILY [facility] Last Admin: 09/06/16 10:48 Dose: 1 tab Chlordiazepoxide (Librium) 25 mg PO Q8 PRN PRN Reason: Anxiety Ergocalciferol (Drisdol 50,000 Intl Units Cap) 1 cap PO Q7D [facility] Last Admin: 09/04/16 22:13 Dose: 1 cap Heparin Sodium (Porcine) (Heparin) 5,000 units SC Q12 [facility] Lisinopril (Zestril) 10 mg PO DAILY [facility] Last Admin: 09/06/16 10:41 Dose: 10 mg - Constitutional Appears: Non-toxic - Head Exam Head Exam: NORMAL INSPECTION - Eye Exam Eye Exam: PERRL Pupil Exam: NORMAL ACCOMODATION - ENT Exam ENT Exam: Normal Exam - Neck Exam Neck Exam: Full ROM - Respiratory Exam Respiratory Exam: NORMAL BREATHING PATTERN - Cardiovascular Exam Cardiovascular Exam: REGULAR RHYTHM - Rectal Exam Rectal Exam: NORMAL INSPECTION - Back Exam Back Exam: NORMAL INSPECTION - Neurological Exam Neurological Exam: Normal Gait - Psychiatric Exam Psychiatric exam: Normal Affect - Skin Skin Exam: Warm Assessment and Plan - Assessment and Plan (Free Text) Assessment: syncope empty joel melecio leasion r/o malgnancy hep c Plan: as per orders
--- NOTE | 2016-09-06 17:45 | CP.PCM.PN ---
Subjective - Date & Time of Evaluation Date of Evaluation: 09/06/16 Time of Evaluation: 17:42 - Subjective Subjective: MRI Brain with contrast is consistent with a possible small neoplasm. MRA Brain is not performed. Negative Carotid Doppler bilaterally. Oncology consult is ordered. Dr Brenton Haq is on Board. Lab work is showing a positive Hepatitis C Ab Dr Echavarria is on Board. Objective - Vital Signs/Intake and Output Vital Signs (last 24 hours): Temp Pulse Resp BP Pulse Ox 97.6 F 84 20 145/84 100 09/06/16 16:12 09/06/16 16:12 09/06/16 16:12 09/06/16 16:12 09/06/16 17:42 - Medications Medications: Current Medications Calcium Carbonate (Oscal) 500 mg PO BID [facility] Last Admin: 09/06/16 10:41 Dose: 500 mg Calcium/Vitamin D (Oscal-D 250 Mg-125 Units Tab) 1 tab PO DAILY [facility] Last Admin: 09/06/16 10:48 Dose: 1 tab Chlordiazepoxide (Librium) 25 mg PO Q8 PRN PRN Reason: Anxiety Ergocalciferol (Drisdol 50,000 Intl Units Cap) 1 cap PO Q7D [facility] Last Admin: 09/04/16 22:13 Dose: 1 cap Heparin Sodium (Porcine) (Heparin) 5,000 units SC Q12 [facility] Lisinopril (Zestril) 10 mg PO DAILY [facility] Last Admin: 09/06/16 10:41 Dose: 10 mg Assessment and Plan (1) Alcohol abuse Status: Acute (2) Syncope Status: Acute (3) Dizziness Status: Acute (4) Alcohol intoxication Status: Acute (5) Depression Status: Acute (6) History of posttraumatic stress disorder (PTSD) Status: Acute (7) CVA (cerebral vascular accident) Status: Acute (8) Seizures Status: Acute (9) Alcohol related seizure Status: Acute
--- NOTE | 2016-09-06 22:01 | CP.PCM.CON ---
History of Present Illness - History of Present Illness History of Present Illness: 61 year old male with a history of alcohol and tobacco abuse, ?CVA, admitted with presyncope, found to have a right frontal brain lesion. The patient reports to suffering a stroke several years ago. He thinks his brain lesion may be related to this. He denies visual changes or headache. He denies heavy alcohol consumption. He feels his appetite is stable and he denies weightloss. Past medical history: Alcohol and tobacco abuse, ?CVA Past surgical history: None Family history: Denies hematologic and oncologic problems Social history: 15 cigs daily x 25 years, 3 beers daily, denies illicit drug use. Allergies: NKA Review of systems: All remaining review of systems including HEENT, cardiovascular, respiratory, gastrointestinal, genitourinary, musculoskeletal, dermatologic, neurologic, and psychiatric are negative unless mentioned in the HPI. Past Patient History - Tetanus Immunizations Tetanus Immunization: Unknown - Past Medical History & Family History Past Medical History?: Yes - Past Social History Smoking Status: Never Smoked - CARDIAC Hx Hypertension: Yes - PULMONARY Hx Respiratory Disorders: No - NEUROLOGICAL Hx Neurological Disorder: No - HEENT Hx Epistaxis: Yes - RENAL Hx Chronic Kidney Disease: No - ENDOCRINE/METABOLIC Hx Diabetes Mellitus Type 2: No - HEMATOLOGICAL/ONCOLOGICAL Hx Blood Disorders: No - INTEGUMENTARY Hx Dermatological Problems: No - MUSCULOSKELETAL/RHEUMATOLOGICAL Hx Falls: No - GASTROINTESTINAL Hx Gastrointestinal Disorders: Yes - GENITOURINARY/GYNECOLOGICAL Hx Genitourinary Disorders: No Hx Prostate Problems: Yes - PSYCHIATRIC Hx Substance Use: No - SURGICAL HISTORY Hx Surgeries: No - ANESTHESIA Hx Anesthesia: No Meds Allergies/Adverse Reactions: Allergies Allergy/AdvReac Type Severity Reaction Status Date / Time No Known Allergies Allergy Verified 09/02/16 01:33 - Medications Medications: Current Medications Calcium Carbonate (Oscal) 500 mg PO BID [facility] Last Admin: 09/06/16 17:44 Dose: 500 mg Calcium/Vitamin D (Oscal-D 250 Mg-125 Units Tab) 1 tab PO DAILY [facility] Last Admin: 09/06/16 10:48 Dose: 1 tab Chlordiazepoxide (Librium) 25 mg PO Q8 PRN PRN Reason: Anxiety Ergocalciferol (Drisdol 50,000 Intl Units Cap) 1 cap PO Q7D [facility] Last Admin: 09/04/16 22:13 Dose: 1 cap Heparin Sodium (Porcine) (Heparin) 5,000 units SC Q12 [facility] Last Admin: 09/06/16 21:51 Dose: 5,000 units Lisinopril (Zestril) 10 mg PO DAILY [facility] Last Admin: 09/06/16 10:41 Dose: 10 mg Physical Exam - Head Exam Head Exam: ATRAUMATIC - Eye Exam Eye Exam: Normal appearance - ENT Exam ENT Exam: Mucous Membranes Dry - Respiratory Exam Respiratory Exam: NORMAL BREATHING PATTERN - Cardiovascular Exam Cardiovascular Exam: +S1, +S2 - GI/Abdominal Exam GI & Abdominal Exam: Normal Bowel Sounds - Extremities Exam Extremities exam: Positive for: normal inspection - Neurological Exam Neurological exam: Oriented x3 - Psychiatric Exam Psychiatric exam: Normal Affect, Normal Mood - Skin Skin Exam: Warm Results - Vital Signs Recent Vital Signs: Last Vital Signs Temp 97.6 F 09/06/16 16:12 Pulse 76 09/06/16 20:03 Resp 20 09/06/16 16:12 BP 145/84 09/06/16 16:12 Pulse Ox 100 09/06/16 17:45 - Labs Result Diagrams: 09/02/16 04:30 09/02/16 04:30 Labs: Laboratory Results - last 24 hr 09/04/16 09/05/16 08:07 07:15 Hemoglobin A1c 5.7 MODE 6 Profile Negative Hepatitis A IgM Ab Negative Hep Bs Antigen Negative Hep B Core IgM Ab Negative Hepatitis C Antibody Reactive H Assessment & Plan (1) Brain lesion Assessment and Plan: will check CT C/A/P with PO + IV contrast consider neurosurgical evaluation Status: Acute (2) Anemia Assessment and Plan: will check ferritin, retic count, b12, folate, FOBT to further characterize Status: Acute (3) Tobacco abuse Assessment and Plan: smoking cessation discussed at length with the patient. Thank you for this interesting consult. Status: Acute
[2016-09-07] MEDS ORDERED: Iohexol 240 (50 ml) PO ONE (07:45)
--- NOTE | 2016-09-07 08:01 | EEG ---
DATE: 09/04/2016 The record is obtained for history of syncope, alcohol abuse. The record was obtained while the patient was awake and drowsy. The record was symmetrically equal on both sides with a velocity of 8 cycles per second. The waves a re fairly formed, fairly organized with a posterior distribution, moderate in amplitude, reactive to eye opening by attenuation. There are no abnormal discharges. No spike, no polyspike, no sharp wave , no focal slowing or paroxysmal discharge. The record did not show any changes with photic stimulat ion. The hyperventilation was omitted. There were periods of drowsiness during which attenuation an d slowing of the record were seen and theta waves were seen. There were eye movement artifacts, elec trode artifacts, and muscle movement artifacts. IN SUMMARY: This is a normal awake and drowsy electroencephalogram. Clinical correlation is recomme nded. Justine Goyal MD cc: [id number] TT: 09/07/2016 08:00:12 Confirmation # [id number] Dictation # [id number]
--- NOTE | 2016-09-07 09:29 | CP.PCM.PN ---
Subjective - Date & Time of Evaluation Date of Evaluation: 09/07/16 Time of Evaluation: 09:27 - Subjective Subjective: no c/o no new syncope Objective - Vital Signs/Intake and Output Vital Signs (last 24 hours): Temp Pulse Resp BP Pulse Ox 97.8 F 74 20 120/68 100 09/07/16 07:00 09/07/16 07:00 09/07/16 07:00 09/07/16 07:00 09/07/16 07:00 Intake and Output: 09/07/16 09/07/16 06:59 18:59 Intake Total 1440 Balance 1440 - Medications Medications: Current Medications Calcium Carbonate (Oscal) 500 mg PO BID [facility] Last Admin: 09/06/16 17:44 Dose: 500 mg Calcium/Vitamin D (Oscal-D 250 Mg-125 Units Tab) 1 tab PO DAILY [facility] Last Admin: 09/06/16 10:48 Dose: 1 tab Chlordiazepoxide (Librium) 25 mg PO Q8 PRN PRN Reason: Anxiety Ergocalciferol (Drisdol 50,000 Intl Units Cap) 1 cap PO Q7D [facility] Last Admin: 09/04/16 22:13 Dose: 1 cap Heparin Sodium (Porcine) (Heparin) 5,000 units SC Q12 [facility] Last Admin: 09/06/16 21:51 Dose: 5,000 units Lisinopril (Zestril) 10 mg PO DAILY [facility] Last Admin: 09/06/16 10:41 Dose: 10 mg - Constitutional Appears: Non-toxic - Head Exam Head Exam: NORMAL INSPECTION - Eye Exam Eye Exam: Normal appearance Pupil Exam: NORMAL ACCOMODATION - ENT Exam ENT Exam: Mucous Membranes Moist - Neck Exam Neck Exam: Normal Inspection - Respiratory Exam Respiratory Exam: NORMAL BREATHING PATTERN - Cardiovascular Exam Cardiovascular Exam: REGULAR RHYTHM - GI/Abdominal Exam GI & Abdominal Exam: Normal Bowel Sounds - Rectal Exam Rectal Exam: NORMAL INSPECTION - Exam Exam: NORMAL INSPECTION - Extremities Exam Extremities Exam: Full ROM - Back Exam Back Exam: NORMAL INSPECTION - Neurological Exam Neurological Exam: Normal Gait - Psychiatric Exam Psychiatric exam: Normal Affect - Skin Skin Exam: Normal Color Assessment and Plan - Assessment and Plan (Free Text) Assessment: brain lesion r/o malignancy seen by dr jackson for ct angio and need neurosurgery consult Plan: as per orders
[2016-09-07] MEDS: Calcium-Vit D 250 mg-125 Units Tab UD PO SCH (11:46)
--- NOTE | 2016-09-07 11:55 | CP.PCM.CON ---
History of Present Illness - History of Present Illness History of Present Illness: referred for new + serology for hep c denies risk factors 61 y/o male presents to the ED with complains of syncopal episode. Pt states prior to episode he felt light headed and dizzy. Pt denies any injury. Pt also reports difficulty urinating due to prostate issue. PMHx diabetes, not on medication. Pt drank alcohol today. 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 Review of Systems - Constitutional Constitutional: absent: As Per HPI, Anorexia, Chills, Daytime Sleepiness, Excessive Sweating, Fatigue, Fever, Frequent Falls, Headache, Increased Appetite , Lethargy, Malaise, Night Sweats, Snoring, Sleep Apnea, Weight Gain, Weight Loss, Weakness, Other - EENT Eyes: absent: As Per HPI, Blind Spots, Blurred Vision, Change in Vision, Decreased Night Vision, Diplopia, Discharge, Dry Eye, Exophthalmos, Floaters, Irritation, Itchy Eyes, Loss of Peripheral Vision, Pain, Photophobia, Requires Corrective Lenses, Sees Flashes, Spots in Vision, Tunnel Vision, Other Visual Disturbances, Loss of Vision, Other Ears: absent: As Per HPI, Decreased Hearing, Ear Discharge, Ear Pain, Tinnitus, Abnormal Hearing, Disequilibrium, Dizziness, Other Nose/Mouth/Throat: absent: As Per HPI, Epistaxis, Nasal Congestion, Nasal Discharge, Nasal Obstruction, Nasal Trauma, Nose Pain, Post Nasal Drip, Sinus Pain, Sinus Pressure, Bleeding Gums, Change in Voice, Dental Pain, Dry Mouth, Dysphagia, Halitosis, Hoarsness, Lip Swelling, Mouth Lesions, Mouth Pain, Odynophagia, Sore Throat, Throat Swelling, Tongue Swelling, Facial Pain, Neck Pain, Neck Mass, Other - Cardiovascular Cardiovascular: absent: As Per HPI, Acrocyanosis, Chest Pain, Chest Pain at Rest , Chest Pain with Activity, Claudication, Diaphoresis, Dyspnea, Dyspnea on Exertion, Edema, Irregular Heart Rhythm, Pain Radiating to Arm/Neck/Jaw, Leg Edema, Leg Ulcers, Lightheadedness, Orthopnea, Palpitations, Paroxysmal Nocturnal Dyspnea, Pedal Edema, Radiating Pain, Rapid Heart Rate, Slow Heart Rate, Syncope, Other - Respiratory Respiratory: absent: As Per HPI, Cough, Dyspnea, Hemoptysis, Dyspnea on Exertion , Wheezing, Snoring, Stridor, Pain on Inspiration, Chest Congestion, Excessive Mucous Production, Change in Mucous Color, Pain with Coughing, Other - Gastrointestinal Gastrointestinal: As Per HPI - Genitourinary Genitourinary: absent: As Per HPI, Change in Urinary Stream, Difficulty Urinating, Dysuria, Flank Pain, Hematuria, Pyuria, Nocturia, Urinary Incontinence, Urinary Frequency, Urinary Hesitance, Urinary Urgency, Voiding Freq/Small Amts, Freq UTI, Hx Renal/Bladder Calculi, Hx /Renal Surgery, Bladder Distension, Other - Musculoskeletal Musculoskeletal: absent: As Per HPI, Abnormal Gait, Arthralgias, Atrophy, Back Pain, Deformity, Joint Swelling, Limited Range of Motion, Loss of Height, Muscle Cramps, Muscle Weakness, Myalgias, Neck Pain, Numbness, Radiating Pain into Limb, Stiffness, Tingling, Other - Integumentary Integumentary: absent: As Per HPI, Acne, Alopecia, Bleeding Lesions, Change in Hair, Change in Nails, Change in Pigmentation, Changing Lesions, Dry Skin, Erythema, Furuncle, Hirsutism, Lesions, New Lesions, Non-Healing Lesions, Photosensitivity, Pruritus, Rash, Skin Pain, Skin Ulcer, Sores, Striae, Swelling , Unusual Bruising, Wounds, Jaundice, Other - Neurological Neurological: As Per HPI - Psychiatric Psychiatric: absent: As Per HPI, Abnormal Sleep Pattern, Anhedonia, Anxiety, Auditory Hallucinations, Behavioral Changes, Change in Appetite, Change in Libido, Confusion, Depression, Difficulty Concentrating, Hallucinations, Homicidal Ideation, Hopelessness, Irritability, Memory Loss, Mood Swings, Panic Attacks, Paranoia, Suicidal Ideation, Visual Hallucinations, Tactile Hallucinations, Other - Endocrine Endocrine: absent: As Per HPI, Change in Body Appearance, Change in Libido, Cold Intolorance, Deepening of Voice, Excessive Sweating, Fatigue, Flushing, Heat Intolorance, Increase in Ring/Shoe/Hat Size, Palpitations, Polydipsia, Polyphagia, Polyuria, Other Past Patient History - Tetanus Immunizations Tetanus Immunization: Unknown - Past Medical History & Family History Past Medical History?: Yes - Past Social History Smoking Status: Never Smoked - CARDIAC Hx Hypertension: Yes - PULMONARY Hx Respiratory Disorders: No - NEUROLOGICAL Hx Neurological Disorder: No - HEENT Hx Epistaxis: Yes - RENAL Hx Chronic Kidney Disease: No - ENDOCRINE/METABOLIC Hx Diabetes Mellitus Type 2: No - HEMATOLOGICAL/ONCOLOGICAL Hx Blood Disorders: No - INTEGUMENTARY Hx Dermatological Problems: No - MUSCULOSKELETAL/RHEUMATOLOGICAL Hx Falls: No - GASTROINTESTINAL Hx Gastrointestinal Disorders: Yes - GENITOURINARY/GYNECOLOGICAL Hx Genitourinary Disorders: No Hx Prostate Problems: Yes - PSYCHIATRIC Hx Substance Use: No - SURGICAL HISTORY Hx Surgeries: No - ANESTHESIA Hx Anesthesia: No Meds Allergies/Adverse Reactions: Allergies Allergy/AdvReac Type Severity Reaction Status Date / Time No Known Allergies Allergy Verified 09/02/16 01:33 - Medications Medications: Current Medications Al Hydrox/Mg Hydrox/Simethicone (Maalox Plus 30 Ml) 30 ml PO ONCE ONE Stop: 09/07/16 12:01 Calcium Carbonate (Oscal) 500 mg PO BID [facility] Last Admin: 09/07/16 09:50 Dose: 500 mg Chlordiazepoxide (Librium) 25 mg PO Q8 PRN PRN Reason: Anxiety Ergocalciferol (Drisdol 50,000 Intl Units Cap) 1 cap PO Q7D [facility] Last Admin: 09/04/16 22:13 Dose: 1 cap Heparin Sodium (Porcine) (Heparin) 5,000 units SC Q12 [facility] Last Admin: 09/07/16 09:50 Dose: 5,000 units Lisinopril (Zestril) 10 mg PO DAILY [facility] Last Admin: 09/07/16 09:50 Dose: 10 mg Physical Exam - Constitutional Appears: Non-toxic, Chronically Ill - Head Exam Head Exam: NORMOCEPHALIC - Eye Exam Eye Exam: absent: Scleral icterus - ENT Exam ENT Exam: Mucous Membranes Dry, Normal External Ear Exam - Neck Exam Neck exam: Negative for: Lymphadenopathy - Respiratory Exam Respiratory Exam: Decreased Breath Sounds - Cardiovascular Exam Cardiovascular Exam: REGULAR RHYTHM, +S1, +S2 - GI/Abdominal Exam GI & Abdominal Exam: Diminished Bowel Sounds, Soft. absent: Tenderness - Rectal Exam Rectal Exam: Deferred - Exam Exam: NORMAL INSPECTION - Extremities Exam Extremities exam: Negative for: pedal edema, tenderness Results - Vital Signs Recent Vital Signs: Last Vital Signs Temp 97.8 F 09/07/16 07:00 Pulse 74 09/07/16 08:00 Resp 20 09/07/16 07:00 BP 120/68 09/07/16 07:00 Pulse Ox 100 09/07/16 07:00 - Labs Result Diagrams: 09/08/16 07:26 09/08/16 07:26 Labs: Laboratory Results - last 24 hr 09/04/16 08:07 MODE 6 Profile Negative Assessment & Plan (1) Alcohol abuse Status: Acute (2) Alcohol intoxication Status: Acute (3) Alcohol related seizure Status: Acute (4) Anemia Status: Acute (5) Brain lesion Status: Acute (6) CVA (cerebral vascular accident) Status: Acute (7) Depression Status: Acute (8) History of posttraumatic stress disorder (PTSD) Status: Acute (9) Hepatitis C antibody positive in blood Status: Acute - Assessment and Plan (Free Text) Assessment: will obtain viral load test as out pt
[2016-09-07] MEDS ORDERED: Alum-Mag Hydrox-Simethicone Susp (30 mL) PO ONE (12:00)
[2016-09-07] MEDS ORDERED: Iodixanol 320 MG/ML 100 ML BOTTLE IV ONE (12:17)
--- NOTE | 2016-09-07 13:59 | CT ---
PROCEDURE: CT HEAD WITH CONTRAST HISTORY: brain malignancy COMPARISON: Comparison is made to the previous MRI dated 09/03/[address] without contrast dated 09/02/2016 TECHNIQUE: Axial computed tomography images were obtained through the head/brain with intravenous contrast. Contrast dose: 100 mL Visipaque 320. Radiation dose: Total exam DLP = 783.19 mGy-cm. This CT exam was performed using one or more of the following dose reduction techniques: Automated exposure control, adjustment of the mA and/or kV according to patient size, and/or use of iterative reconstruction technique. FINDINGS: HEMORRHAGE: No intracranial hemorrhage. BRAIN: No mass, mass effect or edema. No abnormal intracranial enhancement. No atrophy or chronic microvascular ischemic changes. VENTRICLES: No evidence of enhancing mass lesion in the brain. There is questionable slight increased enhancement seen at the medial aspect of right paramedial posterior frontal cortex at the region of previously seen abnormal signal in the previous MRI image 37 series 3. . CALVARIUM: Unremarkable. PARANASAL SINUSES: Unremarkable as visualized. No significant inflammatory changes. MASTOID AIR CELLS: Unremarkable as visualized. No mastoid effusion. OTHER FINDINGS: None. IMPRESSION: No evidence of acute pathology. A CT evidence of enhancing mass lesion. Questionable slight increased enhancement at the right paramedial posterior frontal cortex best seen on image 37 series 3. Three-month follow-up reassessment by enhance MRI is suggested. Otherwise grossly unremarkable study.
--- NOTE | 2016-09-07 14:33 | CT ---
CT chest, abdomen, and pelvis with IV contrast Indication: Brain lesion, ? metastases Technique: Contiguous axial images of the chest, abdomen, and pelvis. Coronal and Sagittal reformats generated and reviewed. This CT exam was performed using 1 or more of the falling dose reduction techniques: Automated exposure control, adjustment of the MAA and/or kV according to patient size, and/or use of iterative reconstruction technique. Oral contrast was administered. 100 cc Visipaque injected. Radiation dose: Total exam DLP = 403.19 MGy-cm. Comparison: CT chest without contrast performed 12/29/15 Findings: Visualized portions of the inferior thyroid gland appear unremarkable. The mediastinal and hilar vascular structures appear within normal limits. The heart appears within normal limits of size. Mild emphysematous changes. 3 mm nodular density adjacent to the right fissure (series 4, image 67). No focal consolidation. No pleural effusion. No pneumothorax. Small hiatal hernia/distal esophageal wall thickening. Hypoattenuation of the liver compatible with hepatic steatosis. Tiny less than 3 mm hypodensities (at least 6) predominantly within the left hepatic lobe, too small to characterize. The gallbladder is contracted limiting evaluation. The pancreas, spleen, and adrenal glands appear unremarkable. The kidneys enhance symmetrically. No evidence of hydronephrosis or obstructing calculus. The stomach is nondistended. The bowel loops appear within normal limits of caliber without evidence of intestinal obstruction. Extensive diverticulosis predominantly involving the sigmoid colon without CT evidence of acute diverticulitis. The appendix appears within normal limits of caliber. No secondary signs of acute appendicitis. There is no definite free air. The prostate gland measures approximately 3.1 x 4.9 cm. The urinary bladder appears unremarkable. Bilateral L5 spondylolysis. Impression: Mild emphysematous changes. 3 mm nodular density adjacent to the right fissure within the right upper lobe. In the absence of risk factors for lung cancer, no specific imaging follow-up is required. If the patient is a smoker or has other risk factors, follow-up CT at 12 months is recommended to document stability. Small hiatal hernia/distal esophageal wall thickening. Hepatic steatosis. Tiny less than 3 mm hypodensities (at least 6) predominantly within the left hepatic lobe, too small to characterize. Extensive diverticulosis predominantly involving the sigmoid colon without CT evidence of acute diverticulitis. Bilateral L5 spondylolysis.
--- NOTE | 2016-09-07 18:49 | CP.PCM.PN ---
Subjective - Date & Time of Evaluation Date of Evaluation: 09/07/16 Time of Evaluation: 18:44 - Subjective Subjective: IMPRESSION of CT Brain with Contrast: No evidence of acute pathology. A CT evidence of enhancing mass lesion. Questionable slight increased enhancement at the right paramedial posterior frontal cortex best seen on image 37 series 3. Three-month follow-up reassessment by enhance MRI is suggested. Otherwise grossly unremarkable study. CT Abdomen and Pelvis Mild emphysematous changes. 3 mm nodular density adjacent to the right fissure within the right upper lobe. In the absence of risk factors for lung cancer, no specific imaging follow-up is required. If the patient is a smoker or has other risk factors, follow-up CT at 12 months is recommended to document stability. Small hiatal hernia/distal esophageal wall thickening. Hepatic steatosis. Tiny less than 3 mm hypodensities (at least 6) predominantly within the left hepatic lobe, too small to characterize. Extensive diverticulosis predominantly involving the sigmoid colon without CT evidence of acute diverticulitis. Bilateral L5 spondylolysis. He is seen By Dr Hermilo Haq of Oncology and Dr Echavarria for his hepatitis C. He is doing OK. Dr Echavarria will follow his Hepatitis C Virus Load as out patient. Negative EEG. Objective - Vital Signs/Intake and Output Vital Signs (last 24 hours): Temp Pulse Resp BP Pulse Ox 98 F 77 20 158/80 H 100 09/07/16 16:00 09/07/16 17:15 09/07/16 16:00 09/07/16 16:00 09/07/16 16:00 Intake and Output: 09/07/16 09/07/16 06:59 18:59 Intake Total 1440 Balance 1440 - Medications Medications: Current Medications Calcium Carbonate (Oscal) 500 mg PO BID [facility] Last Admin: 09/07/16 17:55 Dose: Not Given Chlordiazepoxide (Librium) 25 mg PO Q8 PRN PRN Reason: Anxiety Ergocalciferol (Drisdol 50,000 Intl Units Cap) 1 cap PO Q7D [facility] Last Admin: 09/04/16 22:13 Dose: 1 cap Heparin Sodium (Porcine) (Heparin) 5,000 units SC Q12 [facility] Last Admin: 09/07/16 09:50 Dose: 5,000 units Lisinopril (Zestril) 10 mg PO DAILY [facility] Last Admin: 09/07/16 09:50 Dose: 10 mg Assessment and Plan (1) Alcohol abuse Status: Acute (2) Syncope Status: Acute (3) Dizziness Status: Acute (4) Alcohol intoxication Status: Acute (5) Depression Status: Acute (6) History of posttraumatic stress disorder (PTSD) Status: Acute (7) CVA (cerebral vascular accident) Status: Acute (8) Seizures Status: Acute (9) Alcohol related seizure Status: Acute
--- NOTE | 2016-09-07 21:59 | CP.PCM.PN ---
Subjective - Date & Time of Evaluation Date of Evaluation: 09/07/16 Time of Evaluation: 13:10 - Subjective Subjective: No complaints. Objective - Vital Signs/Intake and Output Vital Signs (last 24 hours): Temp Pulse Resp BP Pulse Ox 98 F 77 20 158/80 H 100 09/07/16 16:00 09/07/16 17:15 09/07/16 16:00 09/07/16 16:00 09/07/16 16:00 - Medications Medications: Current Medications Calcium Carbonate (Oscal) 500 mg PO BID [facility] Last Admin: 09/07/16 17:55 Dose: Not Given Chlordiazepoxide (Librium) 25 mg PO Q8 PRN PRN Reason: Anxiety Ergocalciferol (Drisdol 50,000 Intl Units Cap) 1 cap PO Q7D [facility] Last Admin: 09/04/16 22:13 Dose: 1 cap Heparin Sodium (Porcine) (Heparin) 5,000 units SC Q12 [facility] Last Admin: 09/07/16 21:41 Dose: 5,000 units Lisinopril (Zestril) 10 mg PO DAILY [facility] Last Admin: 09/07/16 09:50 Dose: 10 mg - Head Exam Head Exam: ATRAUMATIC - Eye Exam Eye Exam: Normal appearance - ENT Exam ENT Exam: Mucous Membranes Dry - Respiratory Exam Respiratory Exam: NORMAL BREATHING PATTERN - Cardiovascular Exam Cardiovascular Exam: +S1, +S2 - GI/Abdominal Exam GI & Abdominal Exam: Normal Bowel Sounds - Extremities Exam Extremities Exam: Normal Inspection Assessment and Plan (1) Brain lesion Assessment & Plan: CT C/A/P not suggestive of malignancy would recommend neurosurgical consult for further evaluation Status: Acute (2) Anemia Assessment & Plan: will check ferritin, retic count, b12 folate, FOBT to further characterize Status: Acute (3) Tobacco abuse Assessment & Plan: discussed smoking cessation at length Status: Acute
[2016-09-08 07:40] LABS: BASO # 0.2 K/uL (0.0-0.2); BASO % 2.5 % (0.0-2.0); EOS # 0.3 K/uL (0.0-0.7); EOS % 4.5 % (0.0-4.0); HEMATOCRIT 38.1 % (35.0-51.0); LYMPH # 1.7 K/uL (1.0-4.3); LYMPH % 24.2 % (20.0-40.0); MEAN CELL VOLUME 91.7 fL (80.0-94.0); MEAN CORPUSCULAR HEMOGLOBIN 29.8 pg (27.0-31.0); MEAN CORPUSCULAR HGB CONC 32.4 g/dL (33.0-37.0); MONO # 1.2 K/uL (0.0-0.8); MONO % 16.3 % (0.0-10.0); NRBC % 0.1 % (0.0-2.0); RED CELL DISTRIBUTION WIDTH 13.8 % (11.5-14.5); WHITE BLOOD COUNT 7.1 K/uL (4.8-10.8)
[2016-09-08 07:52] LABS: CHLORIDE 94 mmol/L (98-107); POTASSIUM 4.1 mmol/L (3.6-5.2); SODIUM 131 mmol/L (132-148)
[2016-09-08 07:55] LABS: BLOOD UREA NITROGEN 14 mg/dL (9-20); CARBON DIOXIDE 25 mmol/L (22-30); GFR AFRICAN-AMERICAN > 60; GLUCOSE,RANDOM 106 mg/dL (75-110)
--- NOTE | 2016-09-08 14:08 | CP.PCM.PN ---
Subjective - Date & Time of Evaluation Date of Evaluation: 09/08/16 Time of Evaluation: 14:06 - Subjective Subjective: feels beter Objective - Vital Signs/Intake and Output Vital Signs (last 24 hours): Temp Pulse Resp BP Pulse Ox 97.7 F 80 18 124/71 97 09/08/16 07:30 09/08/16 08:00 09/08/16 07:30 09/08/16 07:30 09/08/16 07:30 Intake and Output: 09/08/16 09/08/16 06:59 18:59 Intake Total 200 Balance 200 - Medications Medications: Current Medications Calcium Carbonate (Oscal) 500 mg PO BID [facility] Last Admin: 09/08/16 10:43 Dose: Not Given Chlordiazepoxide (Librium) 25 mg PO Q8 PRN PRN Reason: Anxiety Ergocalciferol (Drisdol 50,000 Intl Units Cap) 1 cap PO Q7D [facility] Last Admin: 09/04/16 22:13 Dose: 1 cap Heparin Sodium (Porcine) (Heparin) 5,000 units SC Q12 [facility] Last Admin: 09/08/16 10:43 Dose: 5,000 units Sodium Chloride (Sodium Chloride 0.9%) 1,000 mls @ 60 mls/hr IV .[id number] [facility] Lisinopril (Zestril) 10 mg PO DAILY [facility] Last Admin: 09/08/16 10:43 Dose: 10 mg - Labs Labs: 09/08/16 07:26 09/08/16 07:26 - Constitutional Appears: Non-toxic - Head Exam Head Exam: NORMAL INSPECTION - Eye Exam Eye Exam: Normal appearance Pupil Exam: NORMAL ACCOMODATION - ENT Exam ENT Exam: Normal Exam - Respiratory Exam Respiratory Exam: NORMAL BREATHING PATTERN - Cardiovascular Exam Cardiovascular Exam: REGULAR RHYTHM - GI/Abdominal Exam GI & Abdominal Exam: Soft - Rectal Exam Rectal Exam: NORMAL INSPECTION - Exam Exam: NORMAL INSPECTION - Extremities Exam Extremities Exam: Full ROM - Back Exam Back Exam: NORMAL INSPECTION - Neurological Exam Neurological Exam: Normal Gait - Psychiatric Exam Psychiatric exam: Normal Affect - Skin Skin Exam: Normal Color Assessment and Plan - Assessment and Plan (Free Text) Assessment: mass lesion brain posible malignancy Plan: lina surgery
--- NOTE | 2016-09-08 15:04 | CON ---
DATE: 09/08/2016 This is a 61-year-old white male with history of recurrent syncope, falls, has dizziness, was admitte d for this reason. He had an MRI of the brain showing some right frontal hyperintensity nonenhancing which is not consistent with any identifiable lesion; it may be inflammatory, may be status post sei zure, may be status post infarct, may be low grade tumor. He currently is fully awake, alert, orient ed. He has good strength in all muscle groups. There are no sensory deficits, no reflex changes. H is cranial nerves are intact. At this time, I believe he should probably be placed on anticonvulsant s as he may have had a seizure and that could be monitored as per neurology, and I would repeat the M RI with contrast in 3 months to evaluate any changes. If it worsens, then refer him back to us. Sony Diego MD cc: [id number] TT: 09/08/2016 15:04:31 Confirmation # [id number] Dictation # [id number]
[2016-09-08] MEDS: Sodium Chloride 0.9% 1,000 ML IV SCH (15:55)
[2016-09-08 16:03] VITALS: RESP 20
--- NOTE | 2016-09-08 16:33 | CP.PCM.PN ---
Subjective - Date & Time of Evaluation Date of Evaluation: 09/08/16 Time of Evaluation: 10:00 - Subjective Subjective: mass lesion neurosurg consulted Objective - Vital Signs/Intake and Output Vital Signs (last 24 hours): Temp Pulse Resp BP Pulse Ox 97.6 F 87 20 120/68 99 09/08/16 16:02 09/08/16 16:02 09/08/16 16:02 09/08/16 16:02 09/08/16 16:02 Intake and Output: 09/08/16 09/08/16 06:59 18:59 Intake Total 200 Balance 200 - Medications Medications: Current Medications Calcium Carbonate (Oscal) 500 mg PO BID [facility] Last Admin: 09/08/16 10:43 Dose: Not Given Chlordiazepoxide (Librium) 25 mg PO Q8 PRN PRN Reason: Anxiety Ergocalciferol (Drisdol 50,000 Intl Units Cap) 1 cap PO Q7D [facility] Last Admin: 09/04/16 22:13 Dose: 1 cap Heparin Sodium (Porcine) (Heparin) 5,000 units SC Q12 [facility] Last Admin: 09/08/16 10:43 Dose: 5,000 units Sodium Chloride (Sodium Chloride 0.9%) 1,000 mls @ 60 mls/hr IV .[id number] [facility] Last Admin: 09/08/16 15:55 Dose: 60 mls/hr Lisinopril (Zestril) 10 mg PO DAILY [facility] Last Admin: 09/08/16 10:43 Dose: 10 mg - Labs Labs: 09/08/16 07:26 09/08/16 07:26 - Constitutional Appears: Non-toxic, Chronically Ill - Head Exam Head Exam: NORMOCEPHALIC - Eye Exam Eye Exam: absent: Conjunctival injection, Scleral icterus Pupil Exam: Unequal - ENT Exam ENT Exam: Mucous Membranes Dry - Neck Exam Neck Exam: absent: Thyromegaly - Respiratory Exam Respiratory Exam: Decreased Breath Sounds, Clear to Ausculation Bilateral - Cardiovascular Exam Cardiovascular Exam: REGULAR RHYTHM, +S1, +S2 Assessment and Plan (1) Alcohol abuse Status: Acute (2) Alcohol intoxication Status: Acute (3) Alcohol related seizure Status: Acute (4) Anemia Status: Acute (5) Brain lesion Status: Acute (6) CVA (cerebral vascular accident) Status: Acute (7) Depression Status: Acute (8) History of posttraumatic stress disorder (PTSD) Status: Acute (9) Hepatitis C antibody positive in blood Status: Acute
--- NOTE | 2016-09-09 00:13 | CP.PCM.PN ---
Subjective - Date & Time of Evaluation Date of Evaluation: 09/08/16 Time of Evaluation: 21:30 - Subjective Subjective: Patient is followed by Hematology Oncology, Neurosurgery, ID, Internal Medicine He is feeling better and is more reassured. No change on Exam. Objective - Vital Signs/Intake and Output Vital Signs (last 24 hours): Temp Pulse Resp BP Pulse Ox 97.6 F 87 20 120/68 99 09/08/16 16:02 09/08/16 16:02 09/08/16 16:02 09/08/16 16:02 09/08/16 16:02 Intake and Output: 09/08/16 09/09/16 18:59 06:59 Intake Total 120 Balance 120 - Medications Medications: Current Medications Calcium Carbonate (Oscal) 500 mg PO BID [facility] Last Admin: 09/08/16 17:29 Dose: Not Given Chlordiazepoxide (Librium) 25 mg PO Q8 PRN PRN Reason: Anxiety Ergocalciferol (Drisdol 50,000 Intl Units Cap) 1 cap PO Q7D [facility] Last Admin: 09/04/16 22:13 Dose: 1 cap Heparin Sodium (Porcine) (Heparin) 5,000 units SC Q12 [facility] Last Admin: 09/08/16 10:43 Dose: 5,000 units Sodium Chloride (Sodium Chloride 0.9%) 1,000 mls @ 60 mls/hr IV .[id number] [facility] Last Admin: 09/08/16 15:55 Dose: 60 mls/hr Lisinopril (Zestril) 10 mg PO DAILY [facility] Last Admin: 09/08/16 10:43 Dose: 10 mg - Labs Labs: 09/08/16 07:26 09/08/16 07:26 Assessment and Plan (1) Alcohol abuse Status: Acute (2) Syncope Status: Acute (3) Dizziness Status: Acute (4) Alcohol intoxication Status: Acute (5) Depression Status: Acute (6) History of posttraumatic stress disorder (PTSD) Status: Acute (7) CVA (cerebral vascular accident) Status: Acute (8) Seizures Status: Acute (9) Alcohol related seizure Status: Acute
[2016-09-09] MEDS: Sodium Chloride 0.9% 1,000 ML IV SCH ×2 (09:49→21:22)
--- NOTE | 2016-09-09 18:07 | CP.PCM.PN ---
Subjective - Date & Time of Evaluation Date of Evaluation: 09/09/16 Time of Evaluation: 16:00 - Subjective Subjective: Negative Hepatitis C PCR. He is feeling better. He will repeat his MRI Brain in 3 months and then serially once a year to follow up his potential slow growing mass in the Brain. He will be seen by Neurosurgery and Oncology, I.D., Internal Medicine and Neurology as an outpatient. Objective - Vital Signs/Intake and Output Vital Signs (last 24 hours): Temp Pulse Resp BP Pulse Ox 97.9 F 77 20 126/73 99 09/09/16 16:00 09/09/16 16:00 09/09/16 16:00 09/09/16 16:00 09/09/16 16:00 - Medications Medications: Current Medications Calcium Carbonate (Oscal) 500 mg PO BID [facility] Last Admin: 09/09/16 17:32 Dose: Not Given Chlordiazepoxide (Librium) 25 mg PO Q8 PRN PRN Reason: Anxiety Ergocalciferol (Drisdol 50,000 Intl Units Cap) 1 cap PO Q7D [facility] Last Admin: 09/04/16 22:13 Dose: 1 cap Heparin Sodium (Porcine) (Heparin) 5,000 units SC Q12 [facility] Last Admin: 09/09/16 09:49 Dose: 5,000 units Sodium Chloride (Sodium Chloride 0.9%) 1,000 mls @ 60 mls/hr IV .[id number] [facility] Last Admin: 09/09/16 09:49 Dose: 60 mls/hr Lisinopril (Zestril) 10 mg PO DAILY [facility] Last Admin: 09/09/16 09:49 Dose: 10 mg - Labs Labs: 09/08/16 07:26 09/08/16 07:26 Assessment and Plan (1) Alcohol abuse Status: Acute (2) Syncope Status: Acute (3) Dizziness Status: Acute (4) Alcohol intoxication Status: Acute (5) Depression Status: Acute (6) History of posttraumatic stress disorder (PTSD) Status: Acute (7) CVA (cerebral vascular accident) Status: Acute (8) Seizures Status: Acute (9) Alcohol related seizure Status: Acute
--- NOTE | 2016-09-09 19:19 | CP.PCM.PN ---
Subjective - Date & Time of Evaluation Date of Evaluation: 09/09/16 Time of Evaluation: 19:17 - Subjective Subjective: feels beter na low on iv Objective - Vital Signs/Intake and Output Vital Signs (last 24 hours): Temp Pulse Resp BP Pulse Ox 97.9 F 77 20 126/73 99 09/09/16 16:00 09/09/16 16:00 09/09/16 16:00 09/09/16 16:00 09/09/16 16:00 - Medications Medications: Current Medications Calcium Carbonate (Oscal) 500 mg PO BID [facility] Last Admin: 09/09/16 17:32 Dose: Not Given Chlordiazepoxide (Librium) 25 mg PO Q8 PRN PRN Reason: Anxiety Ergocalciferol (Drisdol 50,000 Intl Units Cap) 1 cap PO Q7D [facility] Last Admin: 09/04/16 22:13 Dose: 1 cap Heparin Sodium (Porcine) (Heparin) 5,000 units SC Q12 [facility] Last Admin: 09/09/16 09:49 Dose: 5,000 units Sodium Chloride (Sodium Chloride 0.9%) 1,000 mls @ 60 mls/hr IV .[id number] [facility] Last Admin: 09/09/16 09:49 Dose: 60 mls/hr Lisinopril (Zestril) 10 mg PO DAILY [facility] Last Admin: 09/09/16 09:49 Dose: 10 mg - Labs Labs: 09/08/16 07:26 09/08/16 07:26 - Constitutional Appears: Non-toxic - Head Exam Head Exam: NORMAL INSPECTION - Eye Exam Eye Exam: Periorbital tenderness Pupil Exam: NORMAL ACCOMODATION - ENT Exam ENT Exam: Normal Exam - Respiratory Exam Respiratory Exam: NORMAL BREATHING PATTERN - Cardiovascular Exam Cardiovascular Exam: REGULAR RHYTHM - GI/Abdominal Exam GI & Abdominal Exam: Normal Bowel Sounds - Rectal Exam Rectal Exam: NORMAL INSPECTION - Exam External exam: NORMAL EXTERNAL EXAM - Extremities Exam Extremities Exam: Normal Inspection - Back Exam Back Exam: NORMAL INSPECTION - Psychiatric Exam Psychiatric exam: Normal Affect - Skin Skin Exam: Normal Color Assessment and Plan - Assessment and Plan (Free Text) Assessment: hyponatreamia s/p syncope Plan: as per orders
--- NOTE | 2016-09-09 19:41 | CP.PCM.PN ---
Subjective - Date & Time of Evaluation Date of Evaluation: 09/09/16 Time of Evaluation: 19:05 - Subjective Subjective: Feeling better Objective - Vital Signs/Intake and Output Vital Signs (last 24 hours): Temp Pulse Resp BP Pulse Ox 97.9 F 77 20 126/73 99 09/09/16 16:00 09/09/16 16:00 09/09/16 16:00 09/09/16 16:00 09/09/16 16:00 - Medications Medications: Current Medications Calcium Carbonate (Oscal) 500 mg PO BID [facility] Last Admin: 09/09/16 17:32 Dose: Not Given Chlordiazepoxide (Librium) 25 mg PO Q8 PRN PRN Reason: Anxiety Ergocalciferol (Drisdol 50,000 Intl Units Cap) 1 cap PO Q7D [facility] Last Admin: 09/04/16 22:13 Dose: 1 cap Heparin Sodium (Porcine) (Heparin) 5,000 units SC Q12 [facility] Last Admin: 09/09/16 09:49 Dose: 5,000 units Sodium Chloride (Sodium Chloride 0.9%) 1,000 mls @ 60 mls/hr IV .[id number] [facility] Last Admin: 09/09/16 09:49 Dose: 60 mls/hr Lisinopril (Zestril) 10 mg PO DAILY [facility] Last Admin: 09/09/16 09:49 Dose: 10 mg - Labs Labs: 09/08/16 07:26 09/08/16 07:26 - Head Exam Head Exam: ATRAUMATIC - Eye Exam Eye Exam: Normal appearance - ENT Exam ENT Exam: Mucous Membranes Dry - Respiratory Exam Respiratory Exam: NORMAL BREATHING PATTERN - Cardiovascular Exam Cardiovascular Exam: +S1, +S2 - GI/Abdominal Exam GI & Abdominal Exam: Normal Bowel Sounds - Extremities Exam Extremities Exam: Normal Inspection Assessment and Plan (1) Brain lesion Assessment & Plan: seen by neurology and neurosurgery for radiographic surveillance, repeat MRI brain in 3 months Status: Acute (2) Anemia Status: Acute (3) Tobacco abuse Status: Acute
[2016-09-09 23:21] VITALS: PULSE 74
[2016-09-10 08:27] LABS: CHLORIDE 98 mmol/L (98-107); POTASSIUM 4.2 mmol/L (3.6-5.2); SODIUM 133 mmol/L (132-148)
[2016-09-10 08:29] LABS: GFR AFRICAN-AMERICAN > 60
[2016-09-10 08:30] LABS: BLOOD UREA NITROGEN 18 mg/dL (9-20); CALCIUM 8.8 mg/dl (8.6-10.4); CARBON DIOXIDE 22 mmol/L (22-30); GLUCOSE,RANDOM 97 mg/dL (75-110)
[2016-09-10] MEDS ORDERED: Pantoprazole 40 mg EC Tab PO SCH (10:30)
--- NOTE | 2016-09-10 10:34 | CP.PCM.DIS ---
Provider - Provider Date of Admission: 09/03/16 12:51 Attending physician: Debby Caballero MD Primary care physician: pt admitted for recurent sycope seen by neurology and was having hyponatreamia treated with n s had MRI brain was aquasion of malignancy seen by oncology dr jaye carbajal ruled out seen by neuro surgery need to repeate mri in 3 month pt has hepatitis c reactive need f/u pt o/e alert oriented no dicomfort ambultory will d/c home f/u by his md dr armenta cont med as per orders ass recurnt syncope hep c hyponatreamia vit d def Time Spent in preparation of Discharge (in minutes): 30 Hospital Course - Lab Results Lab Results: Most Recent Lab Values WBC 7.1 K/uL (4.8-10.8) 09/08/16 07:26 RBC 4.16 Mil/uL (4.40-5.90) L 09/08/16 07:26 Hgb 12.4 g/dL (12.0-18.0) 09/08/16 07:26 Hct 38.1 % (35.0-51.0) 09/08/16 07:26 MCV 91.7 fL (80.0-94.0) 09/08/16 07:26 MCH 29.8 pg (27.0-31.0) 09/08/16 07:26 MCHC 32.4 g/dL (33.0-37.0) L 09/08/16 07:26 RDW 13.8 % (11.5-14.5) 09/08/16 07:26 Plt Count 274 K/uL (130-400) D 09/08/16 07:26 MPV 8.0 fL (7.2-11.7) 09/08/16 07:26 Neut % (Auto) 52.5 % (50.0-75.0) 09/08/16 07:26 Lymph % (Auto) 24.2 % (20.0-40.0) 09/08/16 07:26 Rush % (Auto) 16.3 % (0.0-10.0) H 09/08/16 07:26 Eos % (Auto) 4.5 % (0.0-4.0) H 09/08/16 07:26 Baso % (Auto) 2.5 % (0.0-2.0) H 09/08/16 07:26 Neut # 3.7 K/uL (1.8-7.0) 09/08/16 07:26 Lymph # 1.7 K/uL (1.0-4.3) 09/08/16 07:26 Rush # 1.2 K/uL (0.0-0.8) H 09/08/16 07:26 Eos # 0.3 K/uL (0.0-0.7) 09/08/16 07:26 Baso # 0.2 K/uL (0.0-0.2) 09/08/16 07:26 Sodium 133 mmol/L (132-148) 09/10/16 07:37 Potassium 4.2 mmol/L (3.6-5.2) 09/10/16 07:37 Chloride 98 mmol/L (98-107) 09/10/16 07:37 Carbon Dioxide 22 mmol/L (22-30) 09/10/16 07:37 Anion Gap 17 (10-20) 09/10/16 07:37 BUN 18 mg/dL (9-20) 09/10/16 07:37 Creatinine 1.1 MG/DL (0.8-1.5) 09/10/16 07:37 Est GFR ( Amer) > 60 09/10/16 07:37 Est GFR (Non-Af Amer) > 60 09/10/16 07:37 Random Glucose 97 mg/dL (75-110) 09/10/16 07:37 Hemoglobin A1c 5.7 % (4.2-6.5) 09/04/16 08:07 Uric Acid 3.6 mg/dL (3.5-8.5) 09/05/16 07:15 Calcium 8.8 mg/dl (8.6-10.4) 09/10/16 07:37 Total Bilirubin 0.8 mg/dL (0.2-1.3) 09/02/16 04:30 AST 88 U/L (17-59) H D 09/02/16 04:30 ALT 51 U/L (21-72) 09/02/16 04:30 Alkaline Phosphatase 57 U/L (38-126) 09/02/16 04:30 Total Protein 7.7 g/dL (6.3-8.3) 09/02/16 04:30 Albumin 4.0 g/dL (3.5-5.0) 09/02/16 04:30 Globulin 3.7 gm/dL (2.2-3.9) 09/02/16 04:30 Albumin/Globulin Ratio 1.1 (1.0-2.1) 09/02/16 04:30 Triglycerides 68 mg/dL (0-149) 09/04/16 08:07 Cholesterol 173 mg/dL (0-199) 09/04/16 08:07 LDL Cholesterol Direct 44 mg/dL (0-129) 09/04/16 08:07 HDL Cholesterol 108 mg/dL (30-70) H 09/04/16 08:07 Prostate Specific Ag 1.77 ng/mL (0.00-4.0) 09/03/16 19:33 25-OH Vitamin D Total < 12.8 NG/ML (30.0-100.0) L 09/04/16 08:07 TSH 3rd Generation 2.46 mIU/L (0.46-4.68) 09/04/16 08:07 Urine Color Straw (YELLOW) 09/02/16 09:36 Urine Clarity Clear (Clear) 09/02/16 09:36 Urine pH 5.0 (5.0-8.0) 09/02/16 09:36 Ur Specific [place] 1.006 (1.003-1.030) 09/02/16 09:36 Urine Protein Negative mg/dL (NEGATIVE) 09/02/16 09:36 Urine Glucose (UA) Normal mg/dL (Normal) 09/02/16 09:36 Urine Ketones Negative mg/dL (NEGATIVE) 09/02/16 09:36 Urine Blood Negative (NEGATIVE) 09/02/16 09:36 Urine Nitrate Negative (NEGATIVE) 09/02/16 09:36 Urine Bilirubin Negative (NEGATIVE) 09/02/16 09:36 Urine Urobilinogen Normal mg/dL (0.2-1.0) 09/02/16 09:36 Ur Leukocyte Esterase Neg Walter/uL (Negative) 09/02/16 09:36 Urine WBC (Auto) < 1 /hpf (0-5) 09/02/16 09:36 Urine RBC (Auto) < 1 /hpf (0-3) 09/02/16 09:36 Ur Squamous Epith Cells < 1 /hpf (0-5) 09/02/16 09:36 Urine Opiates Screen Negative (NEGATIVE) 09/02/16 09:36 Urine Methadone Screen Negative (NEGATIVE) 09/02/16 09:36 Ur Barbiturates Screen Negative (NEGATIVE) 09/02/16 09:36 Ur Phencyclidine Scrn Negative (NEGATIVE) 09/02/16 09:36 Ur Amphetamines Screen Negative (NEGATIVE) 09/02/16 09:36 U Benzodiazepines Scrn Negative (NEGATIVE) 09/02/16 09:36 U Oth Cocaine Metabols Negative (NEGATIVE) 09/02/16 09:36 U Cannabinoids Screen Negative (NEGATIVE) 09/02/16 09:36 Alcohol, Quantitative 183 mg/dl (0-10) H 09/02/16 04:30 Rheum Arthritis Panel Negative (NEGATIVE) 09/04/16 08:07 MODE 6 Profile Negative (NEGATIVE) 09/04/16 08:07 Hepatitis A IgM Ab Negative (NEGATIVE) 09/05/16 07:15 Hep Bs Antigen Negative (NEGATIVE) 09/05/16 07:15 Hep B Core IgM Ab Negative (NEGATIVE) 09/05/16 07:15 Hepatitis C Antibody Reactive (NEGATIVE) H 09/05/16 07:15 Hepatitis C RNA <15 not detected IU/mL (<15) 09/07/16 13:58 HCV RNA Quant (PCR) <1.18 not detected log IU/mL (<1.18) 09/07/16 13:58 HIV 1&2 Antibody Screen Negative (NEGATIVE) 09/04/16 08:07 Discharge Exam - Head Exam Head Exam: ATRAUMATIC Discharge Plan - Follow Up Plan Condition: STABLE Disposition: HOME/ ROUTINE
[2016-09-10 11:51] VITALS: BP 127/75; TEMP 97.8
[2016-09-10] MEDS ORDERED: Pneumococcal 23-Valent Vaccine IM ONE (12:28)
--- NOTE | 2016-09-10 19:06 | CP.PCM.PN ---
Subjective - Date & Time of Evaluation Date of Evaluation: 09/10/16 Time of Evaluation: 12:50 - Subjective Subjective: No Seizures, doing well, not in distress. He is discharged to be followed as an out patient as previous notes. Hepatitis C PCR is negative. Objective - Vital Signs/Intake and Output Vital Signs (last 24 hours): Temp Pulse Resp BP Pulse Ox 97.8 F 74 20 127/75 97 09/10/16 07:00 09/10/16 08:00 09/10/16 07:00 09/10/16 07:00 09/10/16 07:00 - Labs Labs: 09/08/16 07:26 09/10/16 07:37 Assessment and Plan (1) Alcohol abuse Status: Acute (2) Syncope Status: Acute (3) Dizziness Status: Acute (4) Alcohol intoxication Status: Acute (5) Depression Status: Acute (6) History of posttraumatic stress disorder (PTSD) Status: Acute (7) CVA (cerebral vascular accident) Status: Acute (8) Seizures Status: Acute (9) Alcohol related seizure Status: Acute
--- NOTE | 2016-09-24 07:03 | PQF GENQUE ---
This form is a permanent part of the medical record To Carolina Caballero MD Patient was admitted with syncope, history of HTN, Hicough, Depression, PTSD, Alcohol abuse with Intoxication Vitamin D deficiency. CT scam test showed lesion in the brain. Please clarify the etiology of patients recurrent SYNCOPE, if possible. Thank you, CAUSE OF SYNCOPE IS SECONDARY TO THE BRAIN LESION. Clarification of your documentation is requested to better reflect the severity of illness and intensity of treatment of your patient. Indicators present [] Specify: [] [] Specify: [] [] Specify: [] [] Specify: [] Location in the medical record that reflects the above clinical findings: [] Treatment Provided: [] PHYSICIAN'S RESPONSE Based on your medical judgment of the clinical indicators outlined above please clarify the following: [] Practitioner response [] If unable to determine, please check the box, sign and date. Present On Admission (POA) Indicator: [] Present at the time of admission [] Not present at the time of admission [] Clinically Undetermined In responding to this query, please exercise your independent professional judgment. The fact that a question is asked does not imply that any particular answer is desired or expected. Thank you for your clarification on this documentation. If you have any questions please call:[ ] * Thank you, [ ]Elena Mcarthur [employer]
[2016-09-30 21:12] VITALS: O2SAT 100
== END 2016-09-10 12:58 | disposition home or self-care (01) | DRG 71 ==
LOC: C.ER 00:32 → C.9E 07:46 → C.5T 11:03 → OBSVTOIN 09-03 12:51 → C.5T 09-10 02:08
PROVIDERS: ADMIT Internal Medicine; ATTEND Internal Medicine
DX: G93.9 Disorder of brain, unspecified (principal); E87.1 Hypo-osmolality and hyponatremia; G31.89 Other specified degenerative diseases of nervous system; K76.0 Fatty (change of) liver, not elsewhere classified; R55 Syncope and collapse; G40.89 Other seizures; I10 Essential (primary) hypertension; R06.6 Hiccough; F32.9 Major depressive disorder, single episode, unspecified; F43.10 Post-traumatic stress disorder, unspecified; F17.210 Nicotine dependence, cigarettes, uncomplicated; F10.120 Alcohol abuse with intoxication, uncomplicated; Y90.6 Blood alcohol level of 120-199 mg/100 ml; E55.9 Vitamin D deficiency, unspecified; F10.129 Alcohol abuse with intoxication, unspecified; D64.9 Anemia, unspecified; R30.0 Dysuria; R26.81 Unsteadiness on feet; K57.30 Diverticulosis of large intestine without perforation or abscess without bleeding; M43.06 Spondylolysis, lumbar region; B19.20 Unspecified viral hepatitis C without hepatic coma

== ENCOUNTER 2016-10-23 17:19 | Inpatient (IN) | payer MEDICARE, OTHER ==
[2016-10-23 17:31] VITALS: BMI 20.7
--- NOTE | 2016-10-23 17:45 | C.PDOC ---
History Of Present Illness 61M c/o "dizziness" for the last 2 weeks. sx are worse with standing. he describes feeling "woozy" but denies any syncope or vertigo. he says he had an MRI 3 weeks ago which shows a "spot on my brain." Time Seen by Provider: 10/23/16 17:28 Chief Complaint (Nursing): Dizziness/Lightheaded Past Medical History Vital Signs: Last Vital Signs Temp 98.2 F 10/23/16 17:31 Pulse 96 H 10/23/16 17:31 Resp 20 10/23/16 17:31 BP 141/76 10/23/16 17:31 Pulse Ox 100 10/23/16 18:30 - Medical History PMH: HTN - [facility] Procedures PACKING OF NASAL REGION USING PACKING MATERIAL (11/03/15) Family History: States: Other Other Family History: nc - Social History Hx Alcohol Use: Yes Hx Substance Use: No - Immunization History Hx Tetanus Toxoid Vaccination: No Hx Influenza Vaccination: No Hx Pneumococcal Vaccination: No Review Of Systems Except As Marked, All Systems Reviewed And Found Negative. Constitutional: Negative for: Fever, Chills Eyes: Negative for: Vision Change Cardiovascular: Negative for: Chest Pain Respiratory: Negative for: Cough, Shortness of Breath Gastrointestinal: Negative for: Nausea, Vomiting, Abdominal Pain Neurological: Positive for: Headache ("pressure" also x 2 weeks), Dizziness. Negative for: Weakness, Numbness Physical Exam - Physical Exam Appears: Well, Non-toxic, No Acute Distress Skin: Warm, Dry Head: Atraumatic Eye(s): bilateral: PERRL, EOMI Oral Mucosa: Moist Tongue: No Swelling Lips: No Swelling Neck: Normal ROM Cardiovascular: Rhythm Regular Respiratory: No Decreased Breath Sounds, No Accessory Muscle Use, No Rales, No Rhonchi, No Wheezing Extremity: No Deformity Neurological/Psych: Oriented x3, Normal Cranial Nerves, No Cerebellar Signs, Normal Motor, Normal Sensation, Other (no focal deficits) Gait: Steady ED Course And Treatment - Laboratory Results Result Diagrams: 10/23/16 17:57 10/23/16 17:57 O2 Sat by Pulse Oximetry: 100 Medical Decision Making Medical Decision Makin Disc w Dr Caballero who will admit for further eval of dizziness, requests neurology consult w Dr Goyal CXR IMPRESSION: Mild venous congestion. Biapical pleural thickening with upper lobe granulomatous changes. Apical pleural thickening appears more prominent on the left. Right hilar prominence. Blunted right costophrenic angle which may represent pleural thickening and or trace effusion. Small rounded nodular densities project over bilateral lung bases ; right greater than left. Correlation with nipple markers may be helpful. Alternatively, correlation with CT scan may be helpful to exclude underlying pulmonary nodule. ecg- nsr 83, nl axis, nl int, LVH, no stemi Disposition - Disposition Disposition: HOSPITALIZED Disposition Time: 17:45 Condition: STABLE - Clinical Impression Clinical Impression: Dizziness, Hyponatremia
[2016-10-23 18:04] LABS: BASO # 0.1 K/uL (0.0-0.2); BASO % 0.8 % (0.0-2.0); EOS # 0.1 K/uL (0.0-0.7); EOS % 0.8 % (0.0-4.0); HEMATOCRIT 34.2 % (35.0-51.0); LYMPH # 1.6 K/uL (1.0-4.3); LYMPH % 19.8 % (20.0-40.0); MEAN CELL VOLUME 88.4 fL (80.0-94.0); MEAN CORPUSCULAR HEMOGLOBIN 30.6 pg (27.0-31.0); MEAN CORPUSCULAR HGB CONC 34.7 g/dL (33.0-37.0); MONO # 1.1 K/uL (0.0-0.8); MONO % 12.7 % (0.0-10.0); RED CELL DISTRIBUTION WIDTH 14.1 % (11.5-14.5); WHITE BLOOD COUNT 8.3 K/uL (4.8-10.8)
[2016-10-23 18:12] LABS: CHLORIDE 79 mmol/L (98-107); POTASSIUM 4.6 mmol/L (3.6-5.2)
[2016-10-23 18:14] LABS: ALB/GLOB RATIO 1.3 (1.0-2.1); AST/SGOT 83 U/L (17-59); BILIRUBIN,TOTAL 1.2 mg/dL (0.2-1.3); CARBON DIOXIDE 24 mmol/L (22-30); GFR AFRICAN-AMERICAN > 60; TOTAL PROTEIN 8.1 g/dL (6.3-8.3)
[2016-10-23 18:15] LABS: ALKALINE PHOSPHATASE 104 U/L (38-126); ALT/SGPT 56 U/L (21-72); BLOOD UREA NITROGEN 11 mg/dL (9-20); CALCIUM 9.2 mg/dl (8.6-10.4); GLUCOSE,RANDOM 95 mg/dL (75-110)
[2016-10-23 18:21] LABS: SODIUM 117 mmol/L (132-148)
[2016-10-23] MEDS ORDERED: Sodium Chloride 0.9% 500 ML IV ONE ×2 (18:22→18:56)
--- NOTE | 2016-10-23 18:32 | RAD ---
HISTORY: dizzy COMPARISON: No prior. TECHNIQUE: Chest PA and lateral FINDINGS: LUNGS: Mild venous congestion. Biapical pleural thickening with upper lobe granulomatous changes. Apical pleural thickening appears more prominent on the left. Right hilar prominence. Blunted right costophrenic angle which may represent pleural thickening and or trace effusion. Small rounded nodular densities project over bilateral lung bases ; right greater than left. Correlation with nipple markers may be helpful. Alternatively, correlation with CT scan may be helpful to exclude underlying pulmonary nodule. PLEURA: As above. CARDIOVASCULAR: Normal. OSSEOUS STRUCTURES: Probable chronic deformities of several left lateral ribs. VISUALIZED UPPER ABDOMEN: Normal. OTHER FINDINGS: None. IMPRESSION: Mild venous congestion. Biapical pleural thickening with upper lobe granulomatous changes. Apical pleural thickening appears more prominent on the left. Right hilar prominence. Blunted right costophrenic angle which may represent pleural thickening and or trace effusion. Small rounded nodular densities project over bilateral lung bases ; right greater than left. Correlation with nipple markers may be helpful. Alternatively, correlation with CT scan may be helpful to exclude underlying pulmonary nodule.
--- NOTE | 2016-10-23 18:50 | CT ---
EXAM: CT Head Without Intravenous Contrast CLINICAL HISTORY: 61 years old, male; Pain; Headache; Additional info: Dizzy headache TECHNIQUE: Axial computed tomography images of the head/brain without intravenous contrast. This CT exam was performed using one or more of the following dose reduction techniques: automated exposure control, adjustment of the mA and/or kV according to patient size, and/or use of iterative reconstruction technique. EXAM DATE/TIME: Exam ordered 10/23/2016 5:41 PM COMPARISON: CT - HEAD W/O CONTRAST 09/02/2016 5:41:39 AM FINDINGS: Brain: Unremarkable. No hemorrhage. No significant white matter disease. No edema. Ventricles: Unremarkable. No ventriculomegaly. Bones/joints: Unremarkable. No acute fracture. Soft tissues: Unremarkable. Sinuses: There is a minimal mucosal thickening is noted within the left maxillary sinus. 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 Mastoid air cells: Unremarkable as visualized. No mastoid effusion. Sella: There is an empty sella. IMPRESSION: 1. Minimal mucosal thickening in the left maxillary sinus. No change.
[2016-10-23 20:17] LABS: RBC URINE < 1 /hpf (0-3); URINE BILIRUBIN NEGATIVE (NEGATIVE); URINE BLOOD NEGATIVE (NEGATIVE); URINE COLOR Yellow (YELLOW); URINE GLUCOSE (UA) NORMAL (Normal); URINE KETONE TRACE mg/dL (NEGATIVE); URINE LEUKOCYTE ESTERASE NEG Leu/uL (Negative); URINE PROTEIN NEGATIVE (NEGATIVE); WBC URINE < 1 /hpf (0-5)
--- NOTE | 2016-10-24 02:15 | CP.PCM.CON ---
History of Present Illness - History of Present Illness History of Present Illness: Dizziness worse on standing since 2 weeks 61M c/o "dizziness" for the last 2 weeks. sx are worse with standing. he describes feeling "woozy" but denies any syncope or vertigo. he says he had an MRI 3 weeks ago which shows a "spot on my brain." Time Seen by Provider: 10/23/16 17:28 Chief Complaint (Nursing): Dizziness/Lightheaded Past Medical History : HTN H/O Alcohol Abuse Vital Signs: Last Vital Signs Temp 98.2 F 10/23/16 17:31 Pulse 96 H 10/23/16 17:31 Resp 20 10/23/16 17:31 BP 141/76 10/23/16 17:31 Pulse Ox 100 10/23/16 18:30 - Medical History PMH: HTN - [facility] Procedures PACKING OF NASAL REGION USING PACKING MATERIAL (11/03/15) Family History: States: Other - Social History Hx Alcohol Use: Yes Hx Substance Use: No - Immunization History Hx Tetanus Toxoid Vaccination: No Hx Influenza Vaccination: No Hx Pneumococcal Vaccination: No Review Of Systems Except As Marked, All Systems Reviewed And Found Negative. Constitutional: Negative for: Fever, Chills Eyes: Negative for: Vision Change Cardiovascular: Negative for: Chest Pain Respiratory: Negative for: Cough, Shortness of Breath Gastrointestinal: Negative for: Nausea, Vomiting, Abdominal Pain Neurological: Positive for: Headache ("pressure" also x 2 weeks), Dizziness. Negative for: Weakness, Numbness O2 Sat by Pulse Oximetry: 100 Medical Decision Making Medical Decision Makin Disc w Dr Caballero who will admit for further eval of dizziness, requests neurology consult w Dr Goyal IMPRESSIONof CT Brain: 1. Minimal mucosal thickening in the left maxillary sinus. No change. No Abnormal findings in the Brain CXR IMPRESSION: Mild venous congestion. Biapical pleural thickening with upper lobe granulomatous changes. Apical pleural thickening appears more prominent on the left. Right hilar prominence. Blunted right costophrenic angle which may represent pleural thickening and or trace effusion. Small rounded nodular densities project over bilateral lung bases ; right greater than left. Correlation with nipple markers may be helpful. Alternatively, correlation with CT scan may be helpful to exclude underlying pulmonary nodule. ecg- nsr 83, nl axis, nl int, LVH, no stemi Disposition - Disposition Disposition: HOSPITALIZED Disposition Time: 17:45 Condition: STABLE - Clinical Impression Clinical Impression: Dizziness, Hyponatremia Past Patient History - Tetanus Immunizations Tetanus Immunization: Unknown - Past Medical History & Family History Past Medical History?: Yes - Past Social History Smoking Status: Heavy Smoker > 10 Cigarettes Daily - CARDIAC Hx Hypertension: Yes - PULMONARY Hx Respiratory Disorders: No - NEUROLOGICAL Hx Neurological Disorder: No - HEENT Hx Epistaxis: Yes - RENAL Hx Chronic Kidney Disease: No - ENDOCRINE/METABOLIC Hx Diabetes Mellitus Type 2: No - HEMATOLOGICAL/ONCOLOGICAL Hx Blood Disorders: No - INTEGUMENTARY Hx Dermatological Problems: No - MUSCULOSKELETAL/RHEUMATOLOGICAL Hx Falls: No - GASTROINTESTINAL Hx Gastrointestinal Disorders: Yes - GENITOURINARY/GYNECOLOGICAL Hx Genitourinary Disorders: No Hx Prostate Problems: Yes - PSYCHIATRIC Hx Substance Use: No - SURGICAL HISTORY Hx Surgeries: No - ANESTHESIA Hx Anesthesia: No Meds Allergies/Adverse Reactions: Allergies Allergy/AdvReac Type Severity Reaction Status Date / Time No Known Allergies Allergy Verified 10/23/16 17:30 Physical Exam - Neurological Exam Additional comments: Mental Status: Awake, alert, Oriented X 3 Normal Memory X3 Normal Cognition Speech is fluent coherent Cranial Nerves II to XII: No Nystagmus, no deficits Motor: Normal Tone, Peripheral Weakness due to alcoholic Motor Peripheral Neuropathy DTR 0 to 1/4 Toes are down going by plantar stimulation. Sensory: No Deficits Cerebellar: Normal FNT Stature and Gait: He is tired. Results - Vital Signs Recent Vital Signs: Last Vital Signs Temp 98.3 F 10/23/16 23:55 Pulse 79 10/23/16 23:55 Resp 20 10/23/16 23:55 BP 106/64 10/23/16 23:55 Pulse Ox 98 10/23/16 23:55 - Labs Result Diagrams: 10/23/16 17:57 10/24/16 19:37 Labs: Laboratory Results - last 24 hr 10/23/16 10/23/16 10/23/16 17:57 17:57 17:57 WBC 8.3 RBC 3.87 L Hgb 11.9 L Hct 34.2 L MCV 88.4 D MCH 30.6 MCHC 34.7 RDW 14.1 Plt Count 441 H D MPV 7.0 L Neut % (Auto) 65.9 Lymph % (Auto) 19.8 L [place] % (Auto) 12.7 H Eos % (Auto) 0.8 Baso % (Auto) 0.8 Neut # 5.5 Lymph # 1.6 Conway # 1.1 H Eos # 0.1 Baso # 0.1 PT 11.3 INR 1.0 APTT 31 Sodium 117 L* Potassium 4.6 Chloride 79 L Carbon Dioxide 24 Anion Gap 19 BUN 11 Creatinine 1.1 Est GFR ( Amer) > 60 Est GFR (Non-Af Amer) > 60 Random Glucose 95 Serum Osmolality Calcium 9.2 Total Bilirubin 1.2 AST 83 H ALT 56 Alkaline Phosphatase 104 Troponin I < 0.0120 Total Protein 8.1 Albumin 4.6 Globulin 3.6 Albumin/Globulin Ratio 1.3 Urine Color Urine Clarity Urine pH Ur Specific [place] Urine Protein Urine Glucose (UA) Urine Ketones Urine Blood Urine Nitrate Urine Bilirubin Urine Urobilinogen Ur Leukocyte Esterase Urine WBC (Auto) Urine RBC (Auto) Urine Osmolality Ur Random Sodium 10/23/16 10/23/16 10/23/16 19:04 20:04 20:05 WBC RBC Hgb Hct MCV MCH MCHC RDW Plt Count MPV Neut % (Auto) Lymph % (Auto) [place] % (Auto) Eos % (Auto) Baso % (Auto) Neut # Lymph # [place] # Eos # Baso # PT INR APTT Sodium Potassium Chloride Carbon Dioxide Anion Gap BUN Creatinine Est GFR ( Amer) Est GFR (Non-Af Amer) Random Glucose Serum Osmolality 241 L Calcium Total Bilirubin AST ALT Alkaline Phosphatase Troponin I Total Protein Albumin Globulin Albumin/Globulin Ratio Urine Color Yellow Urine Clarity Clear Urine pH 5.0 Ur Specific [place] 1.008 Urine Protein Negative Urine Glucose (UA) Normal Urine Ketones Trace Urine Blood Negative Urine Nitrate Negative Urine Bilirubin Negative Urine Urobilinogen 2.0 Ur Leukocyte Esterase Neg Urine WBC (Auto) < 1 Urine RBC (Auto) < 1 Urine Osmolality 196 L Ur Random Sodium 8 Assessment & Plan (1) Dizziness Status: Acute (2) Hyponatremia Status: Acute (3) Alcohol abuse Status: Acute (4) Alcohol intoxication Status: Acute (5) Alcohol related seizure Status: Acute (6) Anemia Status: Acute (7) CVA (cerebral vascular accident) Assessment and Plan: Negative CT Brain, will get MRI Brain Status: Acute (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
[2016-10-24 07:55] LABS: URIC ACID 3.8 mg/dL (3.5-8.5)
[2016-10-24 08:29] LABS: THYROID STIMULATING HORMONE 2.08 mIU/L (0.46-4.68)
--- NOTE | 2016-10-24 12:08 | CP.PCM.PN ---
Subjective - Date & Time of Evaluation Date of Evaluation: 10/24/16 Time of Evaluation: 12:04 - Subjective Subjective: FEELS BETER TODAY Objective - Vital Signs/Intake and Output Vital Signs (last 24 hours): Temp Pulse Resp BP Pulse Ox 98.0 F 64 20 124/69 97 10/24/16 08:10 10/24/16 08:10 10/24/16 08:10 10/24/16 08:10 10/24/16 08:10 - Medications Medications: Current Medications Folic Acid (Folic Acid) 1 mg PO DAILY [facility] Last Admin: 10/24/16 09:11 Dose: 1 mg Thiamine HCl (Vitamin B1 Tab) 100 mg PO BID [facility] Last Admin: 10/24/16 09:11 Dose: 100 mg - Labs Labs: 10/23/16 17:57 10/23/16 17:57 PT 11.3 SECONDS (9.7-12.2) 10/23/16 17:57 INR 1.0 10/23/16 17:57 APTT 31 SECONDS (21-34) 10/23/16 17:57 - Constitutional Appears: Non-toxic - Head Exam Head Exam: NORMAL INSPECTION - Eye Exam Eye Exam: Normal appearance Pupil Exam: NORMAL ACCOMODATION - ENT Exam ENT Exam: Mucous Membranes Dry - Neck Exam Neck Exam: Full ROM - Respiratory Exam Respiratory Exam: Clear to Ausculation Bilateral - Cardiovascular Exam Cardiovascular Exam: REGULAR RHYTHM - GI/Abdominal Exam GI & Abdominal Exam: Normal Bowel Sounds - Rectal Exam Rectal Exam: NORMAL INSPECTION - Exam Exam: NORMAL INSPECTION External exam: NORMAL EXTERNAL EXAM - Back Exam Back Exam: NORMAL INSPECTION - Neurological Exam Neurological Exam: Oriented x3 - Psychiatric Exam Psychiatric exam: Normal Affect - Skin Skin Exam: Normal Color - Additional Findings Additional findings: NA LOW Assessment and Plan - Assessment and Plan (Free Text) Assessment: S/P AMS AC HYPONATREAMIA Plan: PER ORDERS
--- NOTE | 2016-10-24 17:25 | CP.PCM.CON ---
Past Patient History - Tetanus Immunizations Tetanus Immunization: Unknown - Past Medical History & Family History Past Medical History?: Yes - Past Social History Smoking Status: Heavy Smoker > 10 Cigarettes Daily - CARDIAC Hx Hypertension: Yes - PULMONARY Hx Respiratory Disorders: No - NEUROLOGICAL Hx Neurological Disorder: No - HEENT Hx Epistaxis: Yes - RENAL Hx Chronic Kidney Disease: No - ENDOCRINE/METABOLIC Hx Diabetes Mellitus Type 2: No - HEMATOLOGICAL/ONCOLOGICAL Hx Blood Disorders: No - INTEGUMENTARY Hx Dermatological Problems: No - MUSCULOSKELETAL/RHEUMATOLOGICAL Hx Falls: No - GASTROINTESTINAL Hx Gastrointestinal Disorders: Yes - GENITOURINARY/GYNECOLOGICAL Hx Genitourinary Disorders: No Hx Prostate Problems: Yes - PSYCHIATRIC Hx Substance Use: No - SURGICAL HISTORY Hx Surgeries: No - ANESTHESIA Hx Anesthesia: No Meds Allergies/Adverse Reactions: Allergies Allergy/AdvReac Type Severity Reaction Status Date / Time No Known Allergies Allergy Verified 10/23/16 17:30 - Medications Medications: Current Medications Folic Acid (Folic Acid) 1 mg PO DAILY [facility] Last Admin: 10/24/16 09:11 Dose: 1 mg Thiamine HCl (Vitamin B1 Tab) 100 mg PO BID [facility] Last Admin: 10/24/16 09:11 Dose: 100 mg Results - Vital Signs Recent Vital Signs: Last Vital Signs Temp 98.2 F 10/24/16 16:33 Pulse 64 10/24/16 16:33 Resp 20 10/24/16 16:33 BP 116/67 10/24/16 16:33 Pulse Ox 98 10/24/16 16:33 - Labs Result Diagrams: 10/23/16 17:57 10/23/16 17:57 Labs: Laboratory Results - last 24 hr 10/23/16 10/23/16 10/23/16 17:57 17:57 17:57 WBC 8.3 RBC 3.87 L Hgb 11.9 L Hct 34.2 L MCV 88.4 D MCH 30.6 MCHC 34.7 RDW 14.1 Plt Count 441 H D MPV 7.0 L Neut % (Auto) 65.9 Lymph % (Auto) 19.8 L Mason % (Auto) 12.7 H Eos % (Auto) 0.8 Baso % (Auto) 0.8 Neut # 5.5 Lymph # 1.6 Mason # 1.1 H Eos # 0.1 Baso # 0.1 ESR PT 11.3 INR 1.0 APTT 31 Sodium 117 L* Potassium 4.6 Chloride 79 L Carbon Dioxide 24 Anion Gap 19 BUN 11 Creatinine 1.1 Est GFR ( Amer) > 60 Est GFR (Non-Af Amer) > 60 Random Glucose 95 Serum Osmolality Uric Acid Calcium 9.2 Total Bilirubin 1.2 AST 83 H ALT 56 Alkaline Phosphatase 104 Troponin I < 0.0120 C-React Prot High Sens Total Protein 8.1 Albumin 4.6 Globulin 3.6 Albumin/Globulin Ratio 1.3 25-OH Vitamin D Total TSH 3rd Generation Urine Color Urine Clarity Urine pH Ur Specific [place] Urine Protein Urine Glucose (UA) Urine Ketones Urine Blood Urine Nitrate Urine Bilirubin Urine Urobilinogen Ur Leukocyte Esterase Urine WBC (Auto) Urine RBC (Auto) Urine Osmolality Ur Random Sodium HIV 1&2 Antibody Screen 10/23/16 10/23/16 10/23/16 19:04 20:04 20:05 WBC RBC Hgb Hct MCV MCH MCHC RDW Plt Count MPV Neut % (Auto) Lymph % (Auto) Mason % (Auto) Eos % (Auto) Baso % (Auto) Neut # Lymph # Mason # Eos # Baso # ESR PT INR APTT Sodium Potassium Chloride Carbon Dioxide Anion Gap BUN Creatinine Est GFR ( Amer) Est GFR (Non-Af Amer) Random Glucose Serum Osmolality 241 L Uric Acid Calcium Total Bilirubin AST ALT Alkaline Phosphatase Troponin I C-React Prot High Sens Total Protein Albumin Globulin Albumin/Globulin Ratio 25-OH Vitamin D Total TSH 3rd Generation Urine Color Yellow Urine Clarity Clear Urine pH 5.0 Ur Specific [place] 1.008 Urine Protein Negative Urine Glucose (UA) Normal Urine Ketones Trace Urine Blood Negative Urine Nitrate Negative Urine Bilirubin Negative Urine Urobilinogen 2.0 Ur Leukocyte Esterase Neg Urine WBC (Auto) < 1 Urine RBC (Auto) < 1 Urine Osmolality 196 L Ur Random Sodium 8 HIV 1&2 Antibody Screen 10/24/16 10/24/16 10/24/16 07:17 07:17 07:17 WBC RBC Hgb Hct MCV MCH MCHC RDW Plt Count MPV Neut % (Auto) Lymph % (Auto) Mason % (Auto) Eos % (Auto) Baso % (Auto) Neut # Lymph # Mason # Eos # Baso # ESR 8 PT INR APTT Sodium Potassium Chloride Carbon Dioxide Anion Gap BUN Creatinine Est GFR ( Amer) Est GFR (Non-Af Amer) Random Glucose Serum Osmolality Uric Acid Calcium Total Bilirubin AST ALT Alkaline Phosphatase Troponin I C-React Prot High Sens 5.35 H Total Protein Albumin Globulin Albumin/Globulin Ratio 25-OH Vitamin D Total 19.2 L TSH 3rd Generation Urine Color Urine Clarity Urine pH Ur Specific [place] Urine Protein Urine Glucose (UA) Urine Ketones Urine Blood Urine Nitrate Urine Bilirubin Urine Urobilinogen Ur Leukocyte Esterase Urine WBC (Auto) Urine RBC (Auto) Urine Osmolality Ur Random Sodium HIV 1&2 Antibody Screen 10/24/16 10/24/16 07:17 07:17 WBC RBC Hgb Hct MCV MCH MCHC RDW Plt Count MPV Neut % (Auto) Lymph % (Auto) Mason % (Auto) Eos % (Auto) Baso % (Auto) Neut # Lymph # Mason # Eos # Baso # ESR PT INR APTT Sodium Potassium Chloride Carbon Dioxide Anion Gap BUN Creatinine Est GFR ( Amer) Est GFR (Non-Af Amer) Random Glucose Serum Osmolality Uric Acid 3.8 Calcium Total Bilirubin AST ALT Alkaline Phosphatase Troponin I C-React Prot High Sens Total Protein Albumin Globulin Albumin/Globulin Ratio 25-OH Vitamin D Total TSH 3rd Generation 2.08 Urine Color Urine Clarity Urine pH Ur Specific [place] Urine Protein Urine Glucose (UA) Urine Ketones Urine Blood Urine Nitrate Urine Bilirubin Urine Urobilinogen Ur Leukocyte Esterase Urine WBC (Auto) Urine RBC (Auto) Urine Osmolality Ur Random Sodium HIV 1&2 Antibody Screen Negative
[2016-10-24 19:57] LABS: CHLORIDE 91 mmol/L (98-107); SODIUM 125 mmol/L (132-148)
[2016-10-24 19:59] LABS: GFR AFRICAN-AMERICAN > 60
[2016-10-24 20:00] LABS: ALB/GLOB RATIO 1.2 (1.0-2.1); ALKALINE PHOSPHATASE 72 U/L (38-126); ALT/SGPT 49 U/L (21-72); AST/SGOT 56 U/L (17-59); BILIRUBIN,TOTAL 0.5 mg/dL (0.2-1.3); BLOOD UREA NITROGEN 15 mg/dL (9-20); CARBON DIOXIDE 24 mmol/L (22-30); GLUCOSE,RANDOM 170 mg/dL (75-110); TOTAL PROTEIN 6.4 g/dL (6.3-8.3)
[2016-10-24 20:01] LABS: CALCIUM 8.1 mg/dl (8.6-10.4)
[2016-10-24 20:07] LABS: RAPID PLASMA REAGIN NONREACTIVE (NONREACTIVE)
[2016-10-24] MEDS ORDERED: Ergocalciferol 50,000 Intl Units Cap PO SCH (23:45)
--- NOTE | 2016-10-24 23:52 | CP.PCM.PN ---
Subjective - Date & Time of Evaluation Date of Evaluation: 10/24/16 Time of Evaluation: 21:55 - Subjective Subjective: Doing the same, no changes. Objective - Vital Signs/Intake and Output Vital Signs (last 24 hours): Temp Pulse Resp BP Pulse Ox 98.2 F 64 20 116/67 98 10/24/16 16:33 10/24/16 16:33 10/24/16 16:33 10/24/16 16:33 10/24/16 16:33 Intake and Output: 10/24/16 10/25/16 18:59 06:59 Intake Total 800 Balance 800 - Medications Medications: Current Medications Folic Acid (Folic Acid) 1 mg PO DAILY [facility] Last Admin: 10/24/16 09:11 Dose: 1 mg Thiamine HCl (Vitamin B1 Tab) 100 mg PO BID [facility] Last Admin: 10/24/16 17:58 Dose: 100 mg - Labs Labs: 10/23/16 17:57 10/24/16 19:37 PT 11.3 SECONDS (9.7-12.2) 10/23/16 17:57 INR 1.0 10/23/16 17:57 APTT 31 SECONDS (21-34) 10/23/16 17:57 Assessment and Plan (1) Dizziness Status: Acute (2) Hyponatremia Status: Acute (3) Alcohol abuse Status: Acute (4) Alcohol intoxication Status: Acute (5) Alcohol related seizure Status: Acute (6) Anemia Status: Acute (7) CVA (cerebral vascular accident) Status: Acute
[2016-10-25 08:00] LABS: CHLORIDE 94 mmol/L (98-107); SODIUM 126 mmol/L (132-148)
[2016-10-25 08:03] LABS: BLOOD UREA NITROGEN 14 mg/dL (9-20); CARBON DIOXIDE 24 mmol/L (22-30); GFR AFRICAN-AMERICAN > 60
[2016-10-25 08:04] LABS: CALCIUM 8.4 mg/dl (8.6-10.4); GLUCOSE,RANDOM 101 mg/dL (75-110)
[2016-10-25 08:09] VITALS: O2SAT 99
[2016-10-25] MEDS ORDERED: Ergocalciferol 50,000 Intl Units Cap PO SCH (09:00)
--- NOTE | 2016-10-25 16:26 | MRI ---
PROCEDURE: MRI BRAIN WITHOUT CONTRAST HISTORY: R/O CVA COMPARISON: Comparison is made to the previous MRI dated 09/03/2016 and 09/04/2016. TECHNIQUE: Multiplanar, multisequence MR images of the brain were obtained without intravenous contrast enhancement. FINDINGS: HEMORRHAGE: None DWI: No evidence of an acute or early subacute infarction. BRAIN PARENCHYMA: Again seen is focal hyperintense FLAIR signal at the posterior right frontal cortex adjacent to the midline which has not significantly changed since the previous exam. No evidence of other abnormal signal in the brain. Pzcf-yf-zrizutlz atrophy is noted again. VENTRICLES: Unremarkable. No hydrocephalus. CRANIUM: Unremarkable. ORBITS: Grossly unremarkable. PARANASAL SINUSES/MASTOIDS: Clear VASCULAR SYSTEM: Skull base flow voids intact. OTHER FINDINGS: None. IMPRESSION: No evidence of acute pathology in the brain. No evidence of significant interval change since the previous exam. Re- demonstration of focal hyperintense FLAIR signal at the paramedian posterior right frontal cortex. Fdio-iq-uxormyaw atrophy.
[2016-10-25 16:30] VITALS: BP 136/77; PULSE 63; RESP 20; TEMP 98
--- NOTE | 2016-10-25 16:47 | CP.PCM.PN ---
Subjective - Date & Time of Evaluation Date of Evaluation: 10/25/16 Time of Evaluation: 16:47 - Subjective Subjective: feels good wants to go home Objective - Vital Signs/Intake and Output Vital Signs (last 24 hours): Temp Pulse Resp BP Pulse Ox 98 F 63 20 136/77 99 10/25/16 15:00 10/25/16 15:00 10/25/16 15:00 10/25/16 15:00 10/25/16 15:00 Intake and Output: 10/25/16 10/25/16 06:59 18:59 Intake Total 1040 Balance 1040 - Medications Medications: Current Medications Calcium Carbonate (Oscal) 500 mg PO BID [facility] Last Admin: 10/25/16 10:35 Dose: 500 mg Ergocalciferol (Drisdol 50,000 Intl Units Cap) 1 cap PO Q7D [facility] Last Admin: 10/25/16 10:35 Dose: 1 cap Folic Acid (Folic Acid) 1 mg PO DAILY [facility] Last Admin: 10/25/16 10:35 Dose: 1 mg Heparin Sodium (Porcine) (Heparin) 5,000 units SC Q12 [facility] Last Admin: 10/25/16 10:34 Dose: 5,000 units Thiamine HCl (Vitamin B1 Tab) 100 mg PO BID [facility] Last Admin: 10/25/16 10:38 Dose: 100 mg - Labs Labs: 10/23/16 17:57 10/25/16 07:26 PT 11.3 SECONDS (9.7-12.2) 10/23/16 17:57 INR 1.0 10/23/16 17:57 APTT 31 SECONDS (21-34) 10/23/16 17:57 - Constitutional Appears: No Acute Distress - Head Exam Head Exam: NORMAL INSPECTION - Eye Exam Eye Exam: Normal appearance - ENT Exam ENT Exam: Mucous Membranes Moist - Neck Exam Neck Exam: Full ROM - Respiratory Exam Respiratory Exam: Clear to Ausculation Bilateral - Rectal Exam Rectal Exam: NORMAL INSPECTION - Extremities Exam Extremities Exam: Full ROM - Back Exam Back Exam: NORMAL INSPECTION - Neurological Exam Neurological Exam: Alert, Awake, Normal Gait, Oriented x3 - Psychiatric Exam Psychiatric exam: Normal Affect - Skin Skin Exam: Normal Color Assessment and Plan - Assessment and Plan (Free Text) Assessment: hyponatreamia mild s/p dizziness improved hyperglyceamia reflux Plan: discharge home f/u by
[2016-10-25] MEDS ORDERED: Pantoprazole 40 mg EC Tab PO SCH (17:00)
--- NOTE | 2016-10-25 18:21 | CON ---
DATE: 10/23/2016 REASON FOR CONSULTATION: Dizziness. REQUESTING PHYSICIAN: Dr. Caballero. HISTORY OF PRESENT ILLNESS: This is a 61-year-old male who has had a history of dizziness on and off for many months. He states it only happens when he gets out of bed, lasts for 4-5 seconds and then goes away. There is no tinnitus, no hearing loss, no sensation of vertigo or room spinning. He stat es he is just feeling lightheaded. It is on and off and only happens when he stands up. PAST MEDICAL HISTORY: As noted in the chart by me. MEDICATIONS: As noted on the chart by me. PHYSICAL EXAMINATION: HEAD: Atraumatic, normocephalic. FACE: Good facial movements bilaterally. CONSTITUTIONAL: Well-developed, well-nourished. COMMUNICATION: Communicates very appropriately. EXTERNAL NOSE AND EARS: No masses, no lesions, no erythema, no edema. INTERNAL NOSE: Deviated septum, no masses, no lesions, no erythema, no edema. ORAL CAVITY, OROPHARYNX: No masses, no lesions, no erythema, no edema. LIPS, GUMS: No masses, no lesions, no erythema, no edema. NECK: Supple. THYROID: No thyromegaly, no goiter. LYMPH NODES: No lymphadenopathy of the neck. ASSESSMENT: 1. Dizziness. 2. Deviated septum. PLAN: The patient should have an MRI of the head done, as has not had one done recently. Follow up as an outpatient. Most likely this is due to a systemic problem. It may be blood pressure or any blo od pressure medications he is on. However, the patient stated that he had a Doppler of the carotids and it was normal. He had MRI of the head and that was normal. The patient was told to follow up in my office and bring the results of his imaging studies so I can look at them. Fabio Tellez MD cc: [id number] TT: 10/25/2016 18:21:00 Confirmation # [id number] Dictation # [id number] ln
--- NOTE | 2016-10-26 00:56 | CP.PCM.PN ---
Subjective - Date & Time of Evaluation Date of Evaluation: 10/25/16 Time of Evaluation: 17:00 - Subjective Subjective: Patient felt better and his symptoms resoved. He is discharge home on his same medicine that he had at the hospital. Objective - Vital Signs/Intake and Output Vital Signs (last 24 hours): Temp Pulse Resp BP Pulse Ox 98 F 63 20 136/77 99 10/25/16 15:00 10/25/16 15:00 10/25/16 15:00 10/25/16 15:00 10/25/16 15:00 - Labs Labs: 10/23/16 17:57 10/25/16 07:26 PT 11.3 SECONDS (9.7-12.2) 10/23/16 17:57 INR 1.0 10/23/16 17:57 APTT 31 SECONDS (21-34) 10/23/16 17:57 Assessment and Plan (1) Dizziness Status: Acute (2) Hyponatremia Status: Acute (3) Alcohol abuse Status: Acute (4) Alcohol intoxication Status: Acute (5) Alcohol related seizure Status: Acute (6) Anemia Status: Acute (7) CVA (cerebral vascular accident) Status: Acute (8) Peripheral motor neuropathy Status: Acute
--- NOTE | 2016-10-27 14:33 | HP ---
The patient came into the Emergency Room, brought in by his family. He had altered mental status and feeling dizzy. The dizziness was about 2 weeks on and off, then he got oozy and unable to concentra te or answer, so they brought him to the Emergency Room. VITAL SIGNS: Blood pressure 141/76, , respirations 20, pulse of 96, and temperature was 98.2. He was not in any distress. He was afebrile, as we said. His skin was dry. He has no swelling. Hi s heart was regular rhythm. At the time he came into the Emergency Room, he was oriented and he has no focal deficit. He was josé miguel rt at the time of admission. LABORATORY DATA: His hemoglobin was 11.9, 34.2 hematocrit and his platelet was high 441. His chemis try was fine. His BUN 11, creatinine 1.9. Sugar is fine. DIAGNOSTIC DATA: He had a CAT scan which was negative. He was monitored for neurological status and his vitals and he was seen by Dr. Justine Goyal for consultation. He had also an MRI done which was un remarkable. CAT scan was negative as well. He was alert, oriented and he was seen by physical therapy. He was able to ambulate good and is feel ing a lot better, so he was sent home on 10/25 to continue physical therapy at home and to continue al l his medications. He was able to walk by himself. He is alert and oriented. His vital signs were stable. He was taking calcium carbonate and ergocalciferol. A prescription was given to the patient and he will follow up with his MD. He also has folic acid thiamine, multiple vitamins given t o him as well. FINAL DIAGNOSES: Acute dizziness and borderline anemia. The patient was stable. Debby Caballero MD cc: [phone] TT: 10/27/2016 12:24:51 sally
[2016-10-27 19:49] LABS: LYME IGM NEGATIVE (NEGATIVE)
[2016-10-27 19:53] LABS: LYME IGG NEGATIVE (NEGATIVE)
--- NOTE | 2016-11-02 11:12 | EEG ---
DATE: 10/25/2016 The record is obtained for a history of altered mental status, rule out seizures. The patient has a history of alcohol abuse and history of vertigo. The record was symmetrically equal on both sides wi th velocity of 8 cycles per second. Waves are fairly formed, fairly organized with a posterior distr ibution, average in amplitude, reactive to eye opening by attenuation. There are no abnormal dischar ges. No spike, no polyspike, no sharp wave, no focal slowing or paroxysmal discharge. The record di d not show any changes with photic stimulation. Hyperventilation was omitted. There are periods of drowsiness during which attenuation and slowing of the record were seen and theta waves were seen. T here are no periods of sleep. There are eye movement artifacts that were seen abundantly, muscle mov ement artifact, electrode artifact. In sum, this is a normal awake and drowsy EEG. Clinical correlation is recommended. Justine Goyal MD cc: [phone] TT: 10/30/2016 06:56:43 Confirmation # [id number] Dictation # [id number] tn
--- NOTE | 2016-11-05 11:19 | CARD ---
APPROVED REPORT EKG Measurement Heart [id number] <Conclusion> Normal sinus rhythm Minimal voltage criteria for LVH, may be normal variant Borderline ECG
== END 2016-10-25 18:10 | disposition home or self-care (01) | DRG 812 ==
LOC: C.ER 17:19 → OBSVTOIN 17:41 → C.9E 17:41 → C.6T 20:04
PROVIDERS: ADMIT Internal Medicine; ATTEND Internal Medicine
DX: D64.9 Anemia, unspecified (principal); E87.1 Hypo-osmolality and hyponatremia; R56.9 Unspecified convulsions; F10.129 Alcohol abuse with intoxication, unspecified; G62.9 Polyneuropathy, unspecified; I10 Essential (primary) hypertension; J34.2 Deviated nasal septum; K21.9 Gastro-esophageal reflux disease without esophagitis; F17.200 Nicotine dependence, unspecified, uncomplicated; R42 Dizziness and giddiness

== ENCOUNTER 2018-08-02 15:49 | Inpatient (IN) | payer MEDICARE, OTHER ==
[2018-08-02 16:03] VITALS: BMI 18.6
[2018-08-02 17:26] LABS: BASO % 0.5 % (0.0-2.0); EOS # 0.1 K/uL (0.0-0.7); EOS % 0.9 % (0.0-4.0); HEMOGLOBIN 12.4 g/dL (12.0-18.0); LYMPH # 1.4 K/uL (1.0-4.3); LYMPH % 19.1 % (20.0-40.0); MEAN CELL VOLUME 85.5 fL (80.0-94.0); MEAN CORPUSCULAR HEMOGLOBIN 28.8 pg (27.0-31.0); MEAN CORPUSCULAR HGB CONC 33.7 g/dL (33.0-37.0); MONO # 0.8 K/uL (0.0-0.8); MONO % 10.7 % (0.0-10.0); NEUT # 4.9 K/uL (1.8-7.0); NEUT % 68.8 % (50.0-75.0); NRBC % 0.1 % (0.0-2.0); RBC 4.31 Mil/uL (4.40-5.90); RED CELL DISTRIBUTION WIDTH 15.4 % (11.5-14.5); WHITE BLOOD COUNT 7.2 K/uL (4.8-10.8)
[2018-08-02 17:44] LABS: ALB/GLOB RATIO 1.5 (1.0-2.1); ALBUMIN 4.6 g/dL (3.5-5.0); ALT/SGPT 49 U/L (21-72); AST/SGOT 57 U/L (17-59); CALCIUM 9.2 mg/dl (8.6-10.4); GFR NON-AFRICAN AMERICAN > 60
[2018-08-02 17:51] LABS: BLOOD UREA NITROGEN 13 mg/dL (9-20)
--- NOTE | 2018-08-02 17:58 | C.PDOC ---
History Of Present Illness 63 year old male presents to ED with complaint of feeling depressed for 2 months, has SI but no specific suicidal plan. Patient has a PMHx of major depression and PTSD. He states he efra previously been on multiple psychiatric medications, but has not taken any for a year and has had no psychiatric follow up for at least one year. Patient also admits to daily alcohol use and reports his last drink was yesterday. He reports occasional right hand/arm tremor that has been present for 2-3 months, but states it is not related with alcohol withdrawal (not worse when he stops drinking). He denies current physical complaints. Time Seen by Provider: 08/02/18 16:44 Chief Complaint (Nursing): Psychiatric Evaluation History Per: Patient History/Exam Limitations: no limitations Onset/Duration Of Symptoms: Other (2 months) Current Symptoms Are (Timing): Still Present Suicide/Self Injury Attempted (Context): None Modifying Factor(s): Alcohol Associated Symptoms: Depression, Suicidal Thoughts. denies: Suicidal Plan Involuntary Hold By: Emergency Physician Past Medical History Reviewed: Historical Data, Nursing Documentation, Vital Signs Vital Signs: Last Vital Signs Temp 97.6 F 08/02/18 16:03 Pulse 109 H 08/02/18 16:03 Resp 18 08/02/18 16:03 BP 178/66 H 08/02/18 16:03 Pulse Ox 100 08/02/18 16:03 - Medical History PMH: Anxiety, Bipolar Disorder, Depression, HTN, Post Traumatic Stress Disorder Surgical History: No Surg Hx - [facility] Procedures PACKING OF NASAL REGION USING PACKING MATERIAL (11/03/15) Family History: States: No Known Family Hx - Social History Hx Alcohol Use: Yes (2 beers/day) Hx Substance Use: No - Immunization History Hx Tetanus Toxoid Vaccination: No Hx Influenza Vaccination: No Hx Pneumococcal Vaccination: No Review Of Systems Constitutional: Negative for: Fever, Chills, Weakness Cardiovascular: Negative for: Chest Pain Respiratory: Negative for: Cough, Shortness of Breath Gastrointestinal: Negative for: Nausea, Vomiting, Abdominal Pain Musculoskeletal: Positive for: Other (intermittent tremor/shaking of right hand). Negative for: Back Pain Skin: Negative for: Rash Neurological: Negative for: Weakness, Numbness, Dizziness Psych: Positive for: Depression, Suicidal ideation. Negative for: Withdrawal, Other (Suicidal plan) Physical Exam - Physical Exam Appears: Well, Non-toxic, No Acute Distress, Other (flat affect, does not appear intoxicated) Skin: Normal Color, Warm, Dry, Other (extremely dry skin on B/L hands with excoriations at finger creases on palmar aspect ) Head: Atraumatic, Normacephalic Eye(s): bilateral: Normal Inspection, PERRL, EOMI Oral Mucosa: Moist Neck: Normal ROM, Supple Cardiovascular: Rhythm Regular Respiratory: No Accessory Muscle Use, No Rales, No Rhonchi, No Wheezing Gastrointestinal/Abdominal: Normal Exam, Bowel Sounds, Soft, No Tenderness Extremity: Other (invoccasional tremor/shaking of right hand, appears involuntary) Neurological/Psych: Oriented x3 ED Course And Treatment - Laboratory Results Result Diagrams: 08/02/18 17:21 08/02/18 17:21 Lab Results: Total Bilirubin 0.6 mg/dL (0.2-1.3) 08/02/18 17:21 AST 57 U/L (17-59) 08/02/18 17:21 ALT 49 U/L (21-72) 08/02/18 17:21 Alkaline Phosphatase 90 U/L (38-126) 08/02/18 17:21 Total Protein 7.7 g/dL (6.3-8.3) 08/02/18 17:21 Albumin 4.6 g/dL (3.5-5.0) 08/02/18 17:21 Globulin 3.1 gm/dL (2.2-3.9) 08/02/18 17:21 Albumin/Globulin Ratio 1.5 (1.0-2.1) 08/02/18 17:21 O2 Sat by Pulse Oximetry: 100 (RA) Pulse Ox Interpretation: Normal Progress Note: Blood work, UA, UDS ordered and reviewed. Patient reports chronic mild hyponatremia on prior blood work. Current Na is 128, which is mild and better than his last two Na levels, 125 and 126. Recommend medicine consu lt. Disposition - Disposition Disposition Time: 19:00 Condition: STABLE Forms: [facility] (Burmese) - Clinical Impression Clinical Impression: Depression - Scribe Statement The provider has reviewed the documentation as recorded by the Scribe (Lulú Ko) All medical record entries made by the Scribe were at my direction and personally dictated by me. I have reviewed the chart and agree that the record accurately reflects my personal performance of the history, physical exam, medical decision making, and the department course for this patient. I have also personally directed, reviewed, and agree with the discharge instructions and disposition. Physician Patient Turnover Patient Signed Over To: Abdirizak Jimenez Handoff Comments: pending UDS, UA
[2018-08-02 19:17] LABS: URINE BACTERIA RARE (<OCC); URINE BILIRUBIN NEGATIVE (NEGATIVE); URINE BLOOD NEGATIVE (NEGATIVE); URINE CLARITY Clear (Clear); URINE COLOR Yellow (YELLOW); URINE GLUCOSE (UA) NORMAL (Normal); URINE LEUKOCYTE ESTERASE NEG Leu/uL (Negative); URINE PROTEIN NEGATIVE (NEGATIVE); URINE UROBILINOGEN NORMAL mg/dL (0.2-1.0)
[2018-08-02 19:30] LABS: BARBITURATES, UR NEGATIVE (NEGATIVE); BENZODIAZEPINES, UR NEGATIVE (NEGATIVE); PHENCYCLIDINE, UR NEGATIVE (NEGATIVE)
[2018-08-02 19:31] LABS: OPIATES, UR POSITIVE (NEGATIVE)
--- NOTE | 2018-08-02 21:34 | PCM.BM ---
<Sven Hahn - Last Filed: 08/02/18 21:32> Treatment Plan Problems - Problems identified on initial assessmt Hopelessness/Helplessness Date Initiated: 08/02/18 Time Initiated: 21:34 Assessment reference: NA Status: Active Less than optimal nutrition Date Initiated: 08/02/18 Time Initiated: 21:34 Assessment reference: NA Status: Active Treatment assets and liabiliti Patient Assests: adapts well, self-reliant, ADL independent, negotiates basic needs, cognitively intact Patient Liabilities: live alone (Stays with friends), poor support system (Various Deaths in family), substance abuse (opiates) - Milieu Protocol Maintain good personal hygiene: daily Encourage regular showers, daily Remind patient to perform daily oral care, every shift Assist patient to perform ADL's Conduct patient checks and document Observation sheet: Q15 minutes (For safety) Maintain personal safety: every shift Educate patient to report safety concerns to staff, every shift Monitor environment for contraband/sharps Medication safety: Monitor for expected outcome, potential side effects: every shift, Assess barriers to learning: every shift, Assess readiness for medication education: every shift <Samantha Hamilton - Last Filed: 08/04/18 12:13> Family Contact Family involvement: Famliy/SO not involved - Goals for Treatment Patient goals for treatment: "I need a place to live." Discharge/Continuing Care - Education Needs Education Needs: Patient Medication, Patient Coping Skills, Patient Placement options, Patient Community resources - Discharge Discharge Criteria: Tolerates medication w/o severe side effects, Reduction of target symptoms Discharge to:: [facility] - Treatment Team Participation Discussed with Family/SO: No Was Patient/Family/SO present at Treatment Team Meeting: Yes <Brenda Shelton - Last Filed: 08/07/18 12:06> - Diagnosis (1) Major depression Status: Acute Interventions: 08/04/18 12:05 * Assess 7x/week regarding severity of withdrawal * Educate regarding risks, benefits, side effects and alternatives of medications * Use Motivational Interviewing for abstinence * Use CBT for relapse prevention * Medication management for withdrawal symptoms * Encourage medication assisted treatment *
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
[2018-08-03] MEDS: Multiple Vitamins Tab PO SCH (12:10)
[2018-08-04 08:44] LABS: ALB/GLOB RATIO 1.4 (1.0-2.1); ALBUMIN 4.2 g/dL (3.5-5.0); ALT/SGPT 34 U/L (21-72); AST/SGOT 44 U/L (17-59); BLOOD UREA NITROGEN 15 mg/dL (9-20); CALCIUM 9.2 mg/dl (8.6-10.4); GFR NON-AFRICAN AMERICAN > 60
[2018-08-04] MEDS: Multiple Vitamins Tab PO SCH (09:37)
[2018-08-04] MEDS ORDERED: Pneumococcal 23-Valent Vaccine IM ONE (10:00)
[2018-08-04] MEDS ORDERED: Influenza Vaccine 60 mcg/0.5 mL SYR (4YR UP) IM ONE (10:00)
[2018-08-04] MEDS ORDERED: Bacitracin Ointment 30 GM TUBE TOP PRN (14:22)
--- NOTE | 2018-08-04 14:56 | CP.PCM.CON ---
<Arun Cordoba - Last Filed: 08/04/18 16:10> History of Present Illness - History of Present Illness History of Present Illness: 63 year old male with the past medical history of hypertension, hyponatremia, depression, and hepatitis C presents in the detox unit after reporting bilateral hand pain for the past three months. The pain is from the cracking of his skin on his fingers. The patient states his hands get dry during the winter time. Patient also admits to using the same household cleaning products prior to his skin becoming dry and cracked. Patient denies any alleviating or modifying factors. Patient denies any recent changes in medications or detergents and soaps. Patient also report gerd like symptoms after eating food. Patient states he reports feeling acid come up his throat after eating. Patient denies taking anything at home for the discomfort. Patient denies any chest pain, shortness of breath, fevers, chills, nausea, vomiting, abdominal pain, syncopal episodes, or any other complaints. PMD: Dr. Mary Sherman (last visit was a "long time ago") Medical history: hypertension, hyponatremia, depression, hepatitis C Medications: Denies Allergies: NKDA Surgical history: Denies Social history: Unemployed/homelss, h/o of amphetamine abuse, etoh abuse (drinks 4 beers a day), heroin and marijuana use Review of Systems - Constitutional Constitutional: absent: Chills, Frequent Falls, Headache, Night Sweats, Weakness - EENT Eyes: absent: Blurred Vision, Discharge, Loss of Peripheral Vision, Sees Flashes, Loss of Vision Ears: absent: Ear Discharge Nose/Mouth/Throat: absent: Nasal Congestion, Nose Pain, Bleeding Gums, Halitosis, Odynophagia, Facial Pain - Cardiovascular Cardiovascular: absent: Chest Pain, Claudication, Leg Edema, Palpitations, Pedal Edema, Syncope - Respiratory Respiratory: absent: Hemoptysis - Gastrointestinal Gastrointestinal: absent: Diarrhea, Dyspepsia, Fecal Incontinence, Loose Stools, Melena, Nausea - Genitourinary Genitourinary: Nocturia, Urinary Urgency. absent: Urinary Incontinence Additional comments: acid reflux reported after eating - Musculoskeletal Musculoskeletal: absent: Myalgias, Neck Pain, Tingling - Integumentary Integumentary: Dry Skin, Skin Pain, Wounds Additional comments: bilateral hands Left hand :2nd and 5th digit open black skin sore Right hand :thumb and 3rd digiti open sore - Neurological Neurological: absent: Dizziness, Numbness, Lack of Coordination, Radicular Pain, Tremor - Psychiatric Psychiatric: absent: Anhedonia, Behavioral Changes, Depression, Hopelessness, Panic Attacks - Endocrine Endocrine: absent: Polydipsia, Polyphagia, Polyuria Past Patient History - Tetanus Immunizations Tetanus Immunization: Unknown - Past Medical History & Family History Past Medical History?: Yes - Past Social History Smoking Status: Heavy Smoker > 10 Cigarettes Daily - CARDIAC Hx Hypertension: Yes - PULMONARY Hx Tuberculosis: No - NEUROLOGICAL HX Cerebrovascular Accident: No Hx Seizures: No - HEENT Hx Epistaxis: Yes - RENAL Hx Chronic Kidney Disease: No - ENDOCRINE/METABOLIC Hx Diabetes Mellitus Type 2: No - HEMATOLOGICAL/ONCOLOGICAL Hx Cancer: No Hx Human Immunodeficiency Virus (HIV): No - INTEGUMENTARY Hx Dermatological Problems: No - MUSCULOSKELETAL/RHEUMATOLOGICAL Hx Falls: No - GASTROINTESTINAL Hx Gastrointestinal Disorders: Yes - GENITOURINARY/GYNECOLOGICAL Hx Sexually Transmitted Disorders: No - PSYCHIATRIC Hx Substance Use: Yes - SURGICAL HISTORY Hx Surgeries: No - ANESTHESIA Hx Anesthesia: No Meds Allergies/Adverse Reactions: Allergies Allergy/AdvReac Type Severity Reaction Status Date / Time No Known Allergies Allergy Verified 08/02/18 16:03 - Medications Medications: Current Medications Bacitracin (Bacitracin) 1 gm TOP Q8 PRN PRN Reason: HAND LACERATION Clonidine HCl (Catapres) 0.1 mg PO Q4H PRN PRN Reason: Symptoms of alcohol withdrawl Folic Acid (Folic Acid) 1 mg PO DAILY [facility] Last Admin: 08/04/18 09:36 Dose: 1 mg Hydroxyzine HCl (Atarax) 25 mg PO Q4H PRN PRN Reason: Anxiety Ibuprofen (Motrin Tab) 400 mg PO Q6H PRN PRN Reason: Pain, moderate (4-7) Mirtazapine (Remeron) 15 mg PO HS [facility] Last Admin: 08/03/18 22:23 Dose: 15 mg Multivitamins (Hexavitamin) 1 tab PO DAILY [facility] Last Admin: 08/04/18 09:37 Dose: 1 tab Thiamine HCl (Vitamin B1 Tab) 100 mg PO DAILY [facility] Last Admin: 08/04/18 09:36 Dose: 100 mg Physical Exam - Head Exam Head Exam: ATRAUMATIC, NORMAL INSPECTION - Eye Exam Eye Exam: EOMI, Normal appearance, PERRL Pupil Exam: NORMAL ACCOMODATION, PERRL. absent: Irregular, Unequal - ENT Exam ENT Exam: Mucous Membranes Moist, Normal Oropharynx - Neck Exam Neck exam: Negative for: Lymphadenopathy, Thyromegaly - Respiratory Exam Respiratory Exam: Clear to Auscultation Bilateral, NORMAL BREATHING PATTERN. absent: Chest Wall Tenderness, Prolonged Expiratory Phase - Cardiovascular Exam Cardiovascular Exam: REGULAR RHYTHM, +S1, +S2 - GI/Abdominal Exam GI & Abdominal Exam: Normal Bowel Sounds, Soft. absent: Hypoactive Bowel Sounds, Organomegaly, Tenderness - Extremities Exam Extremities exam: Positive for: normal inspection. Negative for: full ROM, joint swelling, pedal edema - Back Exam Back exam: NORMAL INSPECTION. absent: CVA tenderness (R), paraspinal tenderness - Neurological Exam Neurological exam: Alert, CN II-XII Intact, Oriented x3 - Psychiatric Exam Psychiatric exam: Normal Affect, Normal Mood - Skin Skin Exam: Abrasion, Dry, Warm Additional comments: Right hand - Thumb and 3rd digit open sores Left hand -2nd and 5th digit have black open sores (+) Tender to touch bilaterally' Negative: weeping, swelling or erythema present Results - Vital Signs Recent Vital Signs: Last Vital Signs Temp 97.3 F L 08/03/18 07:11 Pulse 81 08/03/18 16:11 Resp 18 08/03/18 07:11 BP 139/71 08/03/18 16:11 Pulse Ox 99 08/02/18 20:05 - Labs Result Diagrams: 08/02/18 17:21 08/04/18 08:20 Labs: Laboratory Results - last 24 hr 08/04/18 08:20 Sodium 132 Potassium 3.7 Chloride 98 Carbon Dioxide 28 Anion Gap 10 BUN 15 Creatinine 1.0 Est GFR ( Amer) > 60 Est GFR (Non-Af Amer) > 60 Random Glucose 125 H D Calcium 9.2 Magnesium 1.7 Total Bilirubin 0.4 AST 44 ALT 34 Alkaline Phosphatase 81 Total Protein 7.0 Albumin 4.2 Globulin 2.9 Albumin/Globulin Ratio 1.4 TSH 3rd Generation 2.65 Assessment & Plan - Assessment and Plan (Free Text) Assessment: 63 year old male with a past medical history of hypertension, hypernatremia, and depression presents with bilateral hand pain 2/2 to dry skin sores. Plan: 1. Dry skin sores -Afrebile, No leukocytosis present -Aggressive hydration to the affected areas. -Continue topical antibiotic Medications: Bacitracin 1 top q8 prn Vitamin A&D 1 TOP BID 2.EToh abuse -SHUBHAM <10 on admission Medications: Folic acid 1mg PO Daily [facility] Thiamine 100mg PO Daily [facility] Multivitamin 1 tab PO DAILY [facility] Clonidine .1mg PO Q4 PRN 3.Depression -All management per Psychiatry team. Continue [id number] PO HS [facility] 4.hx of Hepatitis C Hep C antibody: Positive 09/05/16 Negative transaminitis Unsure if patient treated for hepatitis in the past. 5.Anxiety -All managment per Psychiatry team Continue Atarax 25mg PO Q4 PRN Dispo: Recommend aggressive topical hydration with topical antibiotics. Will sign off at this time. Feel free to contact in the future. Plan discussed with Attending, Dr. Weaver. Arun Cordoba, PGY-2 <Khloe Weaver V - Last Filed: 08/08/18 17:07> Meds - Medications Medications: Current Medications Bacitracin (Bacitracin) 1 gm TOP Q8 PRN PRN Reason: HAND LACERATION Clonidine HCl (Catapres) 0.1 mg PO Q4H PRN PRN Reason: Symptoms of alcohol withdrawl Emollient Ointment (Vaseline Oint) 5 gm TOP BID [facility] Last Admin: 08/08/18 09:48 Dose: 5 gm Folic Acid (Folic Acid) 1 mg PO DAILY [facility] Last Admin: 08/08/18 09:47 Dose: 1 mg Hydroxyzine HCl (Atarax) 25 mg PO Q4H PRN PRN Reason: Anxiety Ibuprofen (Motrin Tab) 400 mg PO Q6H PRN PRN Reason: Pain, moderate (4-7) Mirtazapine (Remeron) 15 mg PO HS [facility] Last Admin: 08/07/18 21:57 Dose: 15 mg Multivitamins (Hexavitamin) 1 tab PO DAILY [facility] Last Admin: 08/08/18 09:47 Dose: 1 tab Pantoprazole Sodium (Protonix Ec Tab) 40 mg PO DAILY [facility] Last Admin: 08/08/18 09:48 Dose: 40 mg Thiamine HCl (Vitamin B1 Tab) 100 mg PO DAILY [facility] Last Admin: 08/08/18 09:48 Dose: 100 mg Results - Vital Signs Recent Vital Signs: Last Vital Signs Temp 97.5 F L 08/07/18 06:54 Pulse 80 08/08/18 15:53 Resp 18 08/08/18 09:27 BP 151/77 H 08/08/18 15:53 Pulse Ox 96 08/07/18 06:54 - Labs Result Diagrams: 08/02/18 17:21 08/04/18 08:20 Attending/Attestation - Attestation I have personally seen and examined this patient.: Yes I have fully participated in the care of the patient.: Yes I have reviewed all pertinent clinical information: Yes Notes (Text): This is late computer entry for 08/04/18. Patient seen and case discussed with day-time resident. Medicine consulted to for hand pain. Patient noted to have dry skin or xerosis over both hands. Recommend for topical vitamin A and D. Patient's PMD is Dr. Shaun Sherman; recommend to follow-up with PMD if patient continues to have persistent xerosis for possible referral with ultrasound technologist. Patient also recommended to wear protective hand gear at work and maintain moisture over the hands with items such as Aquaphor which is not available on hospital formulary. Medicine to sign off. Please reconsult if necessary.
[2018-08-04] MEDS: Vitamins A & D Oint UD Foilpak TOP SCH (18:03)
[2018-08-04] MEDS: Pantoprazole 40 mg EC Tab PO SCH (22:10)
[2018-08-05] MEDS: Pantoprazole 40 mg EC Tab PO SCH (09:47)
[2018-08-05] MEDS: Multiple Vitamins Tab PO SCH (09:48)
[2018-08-05] MEDS: Vitamins A & D Oint UD Foilpak TOP SCH ×2 (10:00→18:57)
--- NOTE | 2018-08-05 23:05 | PCM.PYCHPN ---
Psychiatric Progress Note - Psychiatric Progress Note Patient seen today, length of contact: 15 minutes Patient Chief Complaint: I am feeling little better. Problems Identified/Issues Discussed: Patient seen, chart reviewed, case discussed with the staff. Issues related to illness and treatment were discussed with the patient and staff. Reported compliant with treatment with no adverse effects. Tolerating treatment very well. Mood reported as anxious. Affect appropriate. Patient reported feeling little better. Staff reported that patient is less isolative and is also attending groups. Aftercare discussed with the patient. Patient denied any delusions, auditory or visual hallucinations, no suicidal ideations or homicidal ideations at the time of evaluation Medical Problems: Hypertension Diagnostic Results: Reviewed DSM 5 Symptoms Update: Some improvement with treatment. Medication Change: No Medical Record Reviewed: Yes Consults ordered or reviewed: Reviewed Mental Status Examination - Cognitive Function Orientation: Person, Place, Situation, Time Memory: Intact Attention: WNL Concentration: WNL Association: [facility] Fund of Knowledge: [facility] Decription of patient's judgement and insights: Fair - Mood Mood: Anxious - Affect Affect: Other (Appropriate) - Speech Speech: Appropriate - Formal Thought Process Formal Thought Process: No Impairment Psychotic Thoughts and Behaviors: None - Suicidal Ideation Suicidal Ideation: No - Homicidal Ideation Homicidal Ideation: No Goal/Treatment Plan - Goal/Treatment Plan Need for Continued Stay: Remain at risks for inpatient hospitalization, Severe functional impairment Progress Toward Problem(s) and Goals/Treatment Plan: Patient education. Supportive therapy. CBT for relapse prevention. RI for abstinence. Continue treatment as before. Estimated Date of D/C: 08/09/18 - Smoking Cessation Smoking Cessation Initiated: No
[2018-08-06] MEDS: Pantoprazole 40 mg EC Tab PO SCH (09:56)
[2018-08-06] MEDS: Multiple Vitamins Tab PO SCH (09:56)
[2018-08-06] MEDS: Vitamins A & D Oint UD Foilpak TOP SCH (10:01)
[2018-08-06] MEDS: Petrolatum Oint Foilpak (5 gm) TOP SCH ×2 (11:32→18:03)
[2018-08-07 06:55] VITALS: O2SAT 96
[2018-08-07] MEDS: Pantoprazole 40 mg EC Tab PO SCH (09:05)
[2018-08-07] MEDS: Multiple Vitamins Tab PO SCH (09:06)
[2018-08-07] MEDS: Petrolatum Oint Foilpak (5 gm) TOP SCH ×2 (09:07→17:16)
--- NOTE | 2018-08-07 12:07 | PCM.PYCHPN ---
Psychiatric Progress Note - Psychiatric Progress Note Patient seen today, length of contact: 16 min Patient Chief Complaint: "Worried, not good" Problems Identified/Issues Discussed: The pt is seen, chart reviewed, case discussed with staff. Support and psychoeducation given, PA used re alcohol Pt is improving slowly and needs more time, still has ongoing symptoms. No SEs from medications, risks discussed. After care discussed Medication Change: Yes Medical Record Reviewed: Yes Mental Status Examination - Cognitive Function Orientation: Person, Place, Situation, Time Memory: Intact Attention: WNL Concentration: WNL Association: WNL Fund of Knowledge: WNL - Mood Mood: Depressed, Anxious - Affect Affect: Constricted - Speech Speech: Appropriate - Formal Thought Process Formal Thought Process: No Impairment - Suicidal Ideation Suicidal Ideation: No - Homicidal Ideation Homicidal Ideation: No Goal/Treatment Plan - Goal/Treatment Plan Need for Continued Stay: Discharge may exacerbated symptoms, Severe functional impairment Progress Toward Problem(s) and Goals/Treatment Plan: Start for Remeron for depression He has hyponatremia, will not given SSRIs As need medications Atarax, Motrin, and Clonidine All risks, benefits and alternatives of the meds discussed, and the pt agreed and understood. Attend groups and activities Individual therapy daily Psychoeducation and support daily Encourage compliance with meds and after care Refer to outpatient program Teach healthy lifestyle methods, i.e. diet, exercise, meditation Smoking cessation and patch if needed Monitor hyponmatremia Estimated Date of D/C: 08/09/18
--- NOTE | 2018-08-07 12:08 | PCM.PYCHPN ---
Psychiatric Progress Note - Psychiatric Progress Note Patient seen today, length of contact: 16 min Patient Chief Complaint: "Still depressed" Problems Identified/Issues Discussed: The pt is seen, chart reviewed, case discussed with staff. The pt is compliant with medications and reports no side-effects. Symptoms are improving but needs more time to stabilize. Pt attends groups and activities. Support given, psycho-education provided. After care discussed. Medication Change: Yes (meds adjusted) Medical Record Reviewed: Yes Mental Status Examination - Cognitive Function Orientation: Person, Place, Situation, Time Memory: Intact Attention: WNL Concentration: WNL Association: WNL Fund of Knowledge: WNL - Mood Mood: Depressed, Anxious - Affect Affect: Constricted - Speech Speech: Appropriate - Formal Thought Process Formal Thought Process: No Impairment - Suicidal Ideation Suicidal Ideation: No - Homicidal Ideation Homicidal Ideation: No Goal/Treatment Plan - Goal/Treatment Plan Need for Continued Stay: Discharge may exacerbated symptoms, Severe functional impairment Progress Toward Problem(s) and Goals/Treatment Plan: Start for Remeron for depression He has hyponatremia, will not given SSRIs As need medications Atarax, Motrin, and Clonidine All risks, benefits and alternatives of the meds discussed, and the pt agreed and understood. Attend groups and activities Individual therapy daily Psychoeducation and support daily Encourage compliance with meds and after care Refer to outpatient program Teach healthy lifestyle methods, i.e. diet, exercise, meditation Smoking cessation and patch if needed Monitor hyponmatremia Estimated Date of D/C: 08/09/18
[2018-08-08] MEDS: Multiple Vitamins Tab PO SCH (09:47)
[2018-08-08] MEDS: Pantoprazole 40 mg EC Tab PO SCH (09:48)
[2018-08-08] MEDS: Petrolatum Oint Foilpak (5 gm) TOP SCH ×2 (09:48→17:15)
[2018-08-08] MEDS ORDERED: Tuberculin 5 Units/0.1 ml Inj ID ONE (13:00)
--- NOTE | 2018-08-08 13:12 | PCM.PYCHPN ---
Psychiatric Progress Note - Psychiatric Progress Note Patient seen today, length of contact: 15 min Patient Chief Complaint: "Still not well" Problems Identified/Issues Discussed: The pt is seen, chart reviewed, case is discussed with staff. Support and psychoeducation given, CBT and CO used briefly The pt is improving slowly but needs more time due to severity of symptoms and relapse risk. No SEs from medications, risks discussed. After care discussed Medication Change: Yes (meds adjusted) Medical Record Reviewed: Yes Mental Status Examination - Cognitive Function Orientation: Person, Place, Situation, Time Memory: Intact Attention: WNL Concentration: WNL Association: WN Fund of Knowledge: WN - Mood Mood: Depressed, Anxious - Affect Affect: Constricted - Speech Speech: Appropriate - Formal Thought Process Formal Thought Process: No Impairment - Suicidal Ideation Suicidal Ideation: No - Homicidal Ideation Homicidal Ideation: No Goal/Treatment Plan - Goal/Treatment Plan Need for Continued Stay: Discharge may exacerbated symptoms, Severe functional impairment Progress Toward Problem(s) and Goals/Treatment Plan: Start for Remeron for depression He has hyponatremia, will not given SSRIs As need medications Atarax, Motrin, and Clonidine All risks, benefits and alternatives of the meds discussed, and the pt agreed and understood. Attend groups and activities Individual therapy daily Psychoeducation and support daily Encourage compliance with meds and after care Refer to outpatient program Teach healthy lifestyle methods, i.e. diet, exercise, meditation Smoking cessation and patch if needed Monitor hyponmatremia Estimated Date of D/C: 08/09/18
[2018-08-09] MEDS: Multiple Vitamins Tab PO SCH (10:24)
[2018-08-09] MEDS: Pantoprazole 40 mg EC Tab PO SCH (10:24)
[2018-08-09] MEDS: Petrolatum Oint Foilpak (5 gm) TOP SCH ×2 (10:24→18:21)
--- NOTE | 2018-08-09 11:10 | PCM.PYCHPN ---
Psychiatric Progress Note - Psychiatric Progress Note Patient seen today, length of contact: 15 min Patient Chief Complaint: "Still depressed" Problems Identified/Issues Discussed: The pt is seen, chart reviewed, case discussed with staff. The pt is compliant with medications and reports no side-effects. Symptoms are improving but needs more time to stabilize. Pt attends groups and activities. Support given, psycho-education provided. After care discussed. His brother agred to take him until he goes to [facility] placed Medication Change: Yes (meds adjusted) Medical Record Reviewed: Yes Mental Status Examination - Cognitive Function Orientation: Person, Place, Situation, Time Memory: Intact Attention: WNL Concentration: WNL Association: WN Fund of Knowledge: WN - Mood Mood: Depressed, Anxious - Affect Affect: Constricted - Speech Speech: Appropriate - Formal Thought Process Formal Thought Process: No Impairment - Suicidal Ideation Suicidal Ideation: No - Homicidal Ideation Homicidal Ideation: No Goal/Treatment Plan - Goal/Treatment Plan Need for Continued Stay: Discharge may exacerbated symptoms, Severe functional impairment Progress Toward Problem(s) and Goals/Treatment Plan: Start for Remeron for depression He has hyponatremia, will not given SSRIs As need medications Atarax, Motrin, and Clonidine All risks, benefits and alternatives of the meds discussed, and the pt agreed and understood. Attend groups and activities Individual therapy daily Psychoeducation and support daily Encourage compliance with meds and after care Refer to outpatient program Teach healthy lifestyle methods, i.e. diet, exercise, meditation Smoking cessation and patch if needed Monitor hyponmatremia Estimated Date of D/C: 08/09/18
[2018-08-10 06:43] VITALS: RESP 18
[2018-08-10] MEDS: Pantoprazole 40 mg EC Tab PO SCH (09:57)
[2018-08-10] MEDS: Multiple Vitamins Tab PO SCH (09:57)
[2018-08-10] MEDS: Petrolatum Oint Foilpak (5 gm) TOP SCH ×2 (10:01→17:31)
--- NOTE | 2018-08-10 11:29 | PCM.PYCHPN ---
Psychiatric Progress Note - Psychiatric Progress Note Patient seen today, length of contact: 15 min Patient Chief Complaint: "Anxious" Problems Identified/Issues Discussed: The pt is seen, chart reviewed, case discussed with staff. Doing better To be discharged tomorrow ppd done No side-effects from meds Support and CBt used Less depressed, not suicidal today Medication Change: No Medical Record Reviewed: Yes Mental Status Examination - Cognitive Function Orientation: Person, Place, Situation, Time Memory: Intact Attention: WNL Concentration: WNL Association: WNL Fund of Knowledge: WNL - Mood Mood: Depressed, Anxious - Affect Affect: Constricted - Speech Speech: Appropriate - Formal Thought Process Formal Thought Process: No Impairment - Suicidal Ideation Suicidal Ideation: No - Homicidal Ideation Homicidal Ideation: No Goal/Treatment Plan - Goal/Treatment Plan Need for Continued Stay: Discharge may exacerbated symptoms, Severe functional impairment Progress Toward Problem(s) and Goals/Treatment Plan: Start for Remeron for depression He has hyponatremia, will not given SSRIs As need medications Atarax, Motrin, and Clonidine All risks, benefits and alternatives of the meds discussed, and the pt agreed and understood. Attend groups and activities Individual therapy daily Psychoeducation and support daily Encourage compliance with meds and after care Refer to outpatient program Teach healthy lifestyle methods, i.e. diet, exercise, meditation Smoking cessation and patch if needed Monitor hyponatremia Estimated Date of D/C: 08/11/18 If changed, why: He was still depressed
[2018-08-11] MEDS ORDERED: guaiFENesin 100 mg/5 ml Syrup UD PO PRN (01:54)
[2018-08-11 06:12] VITALS: BP 147/81; PULSE 73; TEMP 98.3
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
[2018-08-11] MEDS: Multiple Vitamins Tab PO SCH (09:21)
[2018-08-11] MEDS: Pantoprazole 40 mg EC Tab PO SCH (09:22)
[2018-08-11] MEDS: Petrolatum Oint Foilpak (5 gm) TOP SCH (09:23)
== END 2018-08-11 10:45 | disposition home or self-care (01) | DRG 885 ==
LOC: C.ER 15:49 → C.5E 19:09
PROVIDERS: ADMIT Psychiatry & Neurology Psychiatry; ATTEND Psychiatry & Neurology Psychiatry
PROC: GZHZZZZ Group Psychotherapy (ICD-10-PCS; principal; 2018-08-02)
PROC: HZ52ZZZ Individual Psychotherapy for Substance Abuse Treatment, Cognitive-Behavioral (ICD-10-PCS; 2018-08-02)
PROC: HZ59ZZZ Individual Psychotherapy for Substance Abuse Treatment, Supportive (ICD-10-PCS; 2018-08-02)
PROC: HZ56ZZZ Individual Psychotherapy for Substance Abuse Treatment, Psychoeducation (ICD-10-PCS; 2018-08-02)
PROC: HZ42ZZZ Group Counseling for Substance Abuse Treatment, Cognitive-Behavioral (ICD-10-PCS; 2018-08-02)
PROC: HZ46ZZZ Group Counseling for Substance Abuse Treatment, Psychoeducation (ICD-10-PCS; 2018-08-02)
PROC: GZ58ZZZ Individual Psychotherapy, Cognitive-Behavioral (ICD-10-PCS; 2018-08-02)
PROC: GZ56ZZZ Individual Psychotherapy, Supportive (ICD-10-PCS; 2018-08-02)
DX: F33.2 Major depressive disorder, recurrent severe without psychotic features (principal); E87.1 Hypo-osmolality and hyponatremia; R45.851 Suicidal ideations; F43.10 Post-traumatic stress disorder, unspecified; F10.20 Alcohol dependence, uncomplicated; Y90.0 Blood alcohol level of less than 20 mg/100 ml; F12.90 Cannabis use, unspecified, uncomplicated; F17.210 Nicotine dependence, cigarettes, uncomplicated; I10 Essential (primary) hypertension; L85.3 Xerosis cutis; Z91.410 Personal history of adult physical and sexual abuse; B19.20 Unspecified viral hepatitis C without hepatic coma; Z59.0 Homelessness